=== PATIENT | female | born 1970 | race Caucasian/White ===

== ENCOUNTER → 2019-10-01 | Outpatient (CLI) | payer BC ==
--- NOTE | 2019-10-03 12:45 | CT ---
EXAMINATION TYPE: CT abdomen pelvis w con DATE OF EXAM: 10/01/2019 COMPARISON: 12/01/2014 INDICATION: Nausea, fullness, Rt sided pain shooting down to RLQ DLP: 2185.7 mGycm, Automated exposure control for dose reduction was used. CONTRAST: 100 mL of Isovue 300. Study performed with Oral Contrast TECHNIQUE: Axial images were obtained from above the diaphragm to the pubic rami in the axial plane a t 5 mm thick sections. Reconstructed images are reviewed on the computer in the coronal plane. FINDINGS: Limited CT sections are obtained the lung bases. The lung bases are clear. CT ABDOMEN: Liver: Normal Spleen: Normal Pancreas: Normal Adrenal glands: The adrenal glands are normal. Gallbladder: Surgically absent Kidneys: No masses are evident. No hydronephrosis is present. No cysts are present. Delayed images were obtained through the kidneys, which remain unremarkable. Aorta: Normal Inferior vena cava: Normal. CT PELVIS: Some mild beam hardening artifact through the pelvis is evident. Loops of bowel within the abdomen and pelvis are normal. There are loops of bowel which are incom pletely distended or lack oral contrast limiting their evaluation. Appendix: Normal as visualized. Urinary bladder: Normal. Genitourinary structures: Uterus and adnexal regions appear normal. Osseous structures: No suspicious lytic or sclerotic lesions. Mild sacroiliac joint degenerative garrett ges are present. IMPRESSIONS: 1. No acute abdomen or pelvic abnormality
== END | disposition home or self-care (01) ==
LOC: RADCTMAIN 07:55
PROVIDERS: ATTEND Internal Medicine
DX: R10.31 Right lower quadrant pain (principal); R10.2 Pelvic and perineal pain
CPT/HCPCS: 74177; Q9967 ×2

== ENCOUNTER → 2019-10-14 | Outpatient (CLI) | payer BC ==
[2019-10-14 11:32] LABS: HCT 36.9 % (34.0-46.0); HGB 12.4 gm/dL (11.4-16.0); MCH 28.9 pg (25.0-35.0); MCHC 33.5 g/dL (31.0-37.0); MCV 86.2 fL (80.0-100.0); Mean Platelet Volume 8.9; Platelet Count 208 k/uL (150-450); RBC 4.28 m/uL (3.80-5.40); RDW 13.9 % (11.5-15.5); WBC 6.9 k/uL (3.8-10.6)
[2019-10-14 16:11] LABS: Albumin 4.8 g/dL (3.80-4.90); Albumin/Globulin Ratio 2.29 (1.60-3.17); Anion Gap 8.6 mmol/L (4.00-12.00); BUN/Creat Ratio 23.75 Ratio (12.00-20.00); Calcium 9.6 mg/dL (8.7-10.3); Carbon Dioxide 27.4 mmol/L (21.6-31.8); Globulin 2.1 g/dL (1.6-3.3); Non-African American GFR(CKD) 87.2 (60.0-200.0); Total Bilirubin 0.4 mg/dL (0.2-1.2); Total Protein 6.9 g/dL (6.2-8.2)
== END | disposition home or self-care (01) ==
LOC: LABWHC1 11:05
PROVIDERS: ATTEND Internal Medicine
DX: R10.9 Unspecified abdominal pain (principal); R10.2 Pelvic and perineal pain
CPT/HCPCS: 36415; 80053; 82150; 83690; 85027

== ENCOUNTER → 2020-05-28 | Outpatient (CLI) | payer BC ==
[2020-05-28 15:23] LABS: HCT 39.8 % (34.0-46.0); HGB 12.4 gm/dL (11.4-16.0); MCH 27.3 pg (25.0-35.0); MCHC 31.3 g/dL (31.0-37.0); MCV 87.5 fL (80.0-100.0); Mean Platelet Volume 8.4; Platelet Count 220 k/uL (150-450); RBC 4.55 m/uL (3.80-5.40); RDW 14.5 % (11.5-15.5)
[2020-05-29 01:22] LABS: African American GFR (CKD) 77.2 (60.0-200.0); Albumin 4.9 g/dL (3.80-4.90); Albumin/Globulin Ratio 1.75 (1.60-3.17); Anion Gap 11.8 mmol/L (4.00-12.00); Calcium 9.9 mg/dL (8.7-10.3); Carbon Dioxide 23.2 mmol/L (21.6-31.8); Globulin 2.8 g/dL (1.6-3.3); Non-African American GFR(CKD) 66.6 (60.0-200.0); Potassium 4.7 mmol/L (3.5-5.5); Total Bilirubin 0.5 mg/dL (0.2-1.2); Total Protein 7.7 g/dL (6.2-8.2)
== END | disposition home or self-care (01) ==
LOC: LABWHC1 13:24
PROVIDERS: ATTEND Internal Medicine
DX: R10.9 Unspecified abdominal pain (principal)
CPT/HCPCS: 36415; 80053; 82150; 83690; 85027

== ENCOUNTER → 2020-05-30 | Outpatient (CLI) | payer BC ==
--- NOTE | 2020-05-30 13:31 | CT ---
EXAMINATION TYPE: CT abdomen pelvis w con DATE OF EXAM: 05/30/2020 COMPARISON: Prior CT 10/01/2019 HISTORY: RLQ pain CT DLP: 2373.5 mGycm Automated exposure control for dose reduction was used. TECHNIQUE: Helical acquisition of images from the lung bases through the pelvis have been completed. CONTRAST: Performed with Oral Contrast and with IV Contrast, patient injected with 100 mL of Isovue 300. FINDINGS: Calcification near the mitral annulus is again seen LUNG BASES: Posterior diaphragmatic hernia contains fat on the right extends into the posterior right lung base as on prior. AORTA: No significant abnormality is appreciated. LIVER/GB: The liver is enlarged and shows low-attenuation likely due to hepatic steatosis, patient is post cholecystectomy PANCREAS: No significant abnormality is seen. SPLEEN: No significant abnormality is seen. ADRENALS: No significant abnormality is seen. KIDNEYS: No significant abnormality is seen. REPRODUCTIVE ORGANS: Fat density mass associated with the left ovary measures 5.7 cm in greatest ferraro sverse dimension, some minimal internal soft tissue density. BOWEL: No significant abnormality is seen. The appendix fills with contrast and is normal FREE AIR: No Free Air visible. ASCITES: None visible. PELVIC ADENOPATHY: None visualized. RETROPERITONEAL ADENOPATHY: No Retroperitoneal Adenopathy visible. URINARY BLADDER: No significant abnormality is seen. OSSEOUS STRUCTURES: Degenerative disc disease and spinal curvature noted in the lumbar spine. IMPRESSION: DERMOID TUMOR LEFT OVARY. HEPATIC STEATOSIS, HEPATOMEGALY, POSTOP CHANGES.
== END | disposition home or self-care (01) ==
LOC: RADCTMAIN 10:57
PROVIDERS: ATTEND Internal Medicine
DX: D27.1 Benign neoplasm of left ovary (principal); K76.0 Fatty (change of) liver, not elsewhere classified; R16.0 Hepatomegaly, not elsewhere classified; Z98.890 Other specified postprocedural states
CPT/HCPCS: 74177; Q9967

== ENCOUNTER 2022-03-07 09:00 | Day surgery (SDC) | payer BC ==
[2022-03-05 11:00] VITALS: BMI 56.0
[~2022-03-07 09:00] MED LIST: DEXAMETHASONE SOD PHOSPHATE 4 MG/ML 1 ML VIAL IV ONE; HYDROmorphone 0.5 MG/0.5 ML SYRINGE IVP PRN; LACTATED RINGERS 1,000 ML IV SCH; MIDAZOLAM 2 MG/2 ML VIAL IV PRN; ONDANSETRON 4 MG/2 ML VIAL IVP ONE; SCOPOLAMINE 1 MG/72 HR PATCH TRANSDERM ONE; ceFAZolin 3 GM in SODIUM CHLORIDE 0.9% 100 ML IVPB PRN
[2022-03-07] MEDS ORDERED: fentaNYL (PF) 50 MCG/ML 2 ML AMP ONE (11:28)
[2022-03-07] MEDS ORDERED: MIDAZOLAM 2 MG/2 ML VIAL ONE (11:28)
[2022-03-07] MEDS ORDERED: SUCCINYLCHOLINE CHLORIDE VIAL 200 MG/10 ML VIAL IV ONE (11:28)
[2022-03-07] MEDS ORDERED: LIDOCAINE 2% INJ 20 MG/ML (2 ML VIAL) ONE (11:28)
[2022-03-07] MEDS ORDERED: ROCURONIUM 10 MG/ML (5 ML VIAL) IV ONE (11:28)
[2022-03-07] MEDS ORDERED: PHENYLEPHRINE-0.9% NACL SYG 1,000 MCG/10 ML SYRINGE ONE (11:28)
[2022-03-07] MEDS ORDERED: PROPOFOL 10 MG/ML 20 ML VIAL IV ONE (11:28)
[2022-03-07] MEDS ORDERED: ceFAZolin 1,000 MG in SODIUM CHLORIDE 0.9% 1,000 ML IRRIGATION ONE (11:32)
[2022-03-07] MEDS ORDERED: BUPIVACAINE (PF) 0.5% 30 ML VIAL SQ ONE (11:45)
[2022-03-07] MEDS ORDERED: LACTATED RINGERS 1,000 ML IV ONE (12:33)
--- NOTE | 2022-03-07 12:43 | P.OP ---
Date of Procedure: 03/07/22 Preoperative Diagnosis: Hallux rigidus right foot Postoperative Diagnosis: Same Procedure(s) Performed: First metatarsal phalangeal joint arthrodesis right foot Implants: Arthrex MaxForce MTP fusion plate with associated screws Anesthesia: SAM Surgeon: Garland Garza Estimated Blood Loss (ml): 2 Pathology: none sent Condition: stable Disposition: PACU Description of Procedure: The patient was brought into the operative room placed on table supine position. Timeout was taken to confirm correct patient identifiers, correct procedure, and correct laterality of procedure. When the staff in the room were in agreement with the timeout, the patient was induced and placed under general anesthesia. A well-padded tourniquet was placed on the ankle and then 20 mL of 0.25% Marcaine was injected as an ankle block. The foot was then prepped and draped in usual manner. The foot was exsanguinated with an Esmarch bandage and the tourniquet inflated to 250 mmHg. Attention directed over the first metatarsal phalangeal joint where a linear incision was made between the extensor hallucis longus tendon and the neurovascular structures. The incision was deepened down to the subcutaneous tissue careful to identify, avoid, and retract any neurovascular structures and cauterize any bleeding vessels. Blunt dissection was continued down to the joint capsule. A linear periosteal and capsular incision was made to the extensor hallucis longus tendon. Subperiosteal dissection was performed to expose the base of the proximal phalanx and head of the first metatarsal. A reamer saw was then used to contour the first metatarsal head and remove any of the osteophytes. Then a guidewire was placed centrally into the first metatarsal head and into the medullary canal parallel to the long access of the metatarsal. The concave reamer was then used to remove the articular cartilage and subchondral bone and expose bleeding medullary bone. The guidewire was removed and then used to aggressively fenestrate the head of the first metatarsal to promote bleeding. The guidewire was then inserted at the central aspect of the articular surface of the base of the proximal phalanx. It was advanced into the medullary canal parallel to the long axis of the phalanx. The convex reamer was then used to remove the articular cartilage and subchondral bone and expose bleeding medullary bone. The guidewire was removed and used to aggressively fenestrate this surface also. The wound is then thoroughly irrigated with antibiotic saline. Approximately 1 mL of Arthrex bone morphogenic protein material was placed between the arthrodesis segments. Then the MaxForce plate was placed dorsally across the arthrodesis site utilizing aligned in the plate to placed over the joint surface. It was temporarily fixated in position was checked under fluoroscopy. Once position was acceptable locking screws were placed in the distal holes in the proximal phalanx. A guidewire was then placed across the arthrodesis site to hold the joint in its position. Then the drill hole for the compression device of the plate was made the compression device inserted and then utilized to further compress the arthrodesis site. Once that was completed threaded olive wire was used to lock the plate in place and then the second compression screw was placed proximally to lock the plate and further compress the joint. A second nonlocking screw was placed in the proximal portion of the plate into the metatarsal and the last screw placed with locking screw in the most proximal portion of the plate on the metatarsal. Final fluoroscopic imaging showed complete compression across the arthrodesis site and proper alignment of the great toe. The wound is again irrigated with antibiotic saline. Deep closure was done with 2-0 Vicryl. Subcu closure done for Monocryl. And skin closure done with 3-0 Stratafix in a running subcuticular manner. Dermal glue was applied and allowed to dry. Steri-Strips are placed over the incision, then a jumpstart dressing, and then a bulky dry dressing. The tourniquet was released and capillary refill return to all digits on the foot. Patient was then placed in a well-padded, well molded plaster posterior mold/sugar tong splint. The ankle and foot were held in neutral position until the splint was dried. Anesthesia was then reversed and the patient was taken recovery with vital signs stable
[2022-03-07 12:56] VITALS: TEMP 97
[2022-03-07 14:02] VITALS: RESP 20
[2022-03-07 14:07] VITALS: BP 116/67; PULSE 65
== END 2022-03-07 14:27 | disposition home or self-care (01) ==
LOC: OR 09:00
PROVIDERS: ATTEND Podiatrist
DX: M20.21 Hallux rigidus, right foot (principal)
CPT/HCPCS: 28750; C1713; J2250; J0330; J1100; J0690 ×2; J2405; J3010; J2370; J2704; J2001

== ENCOUNTER 2022-07-07 17:22 | Inpatient (IN) | payer BC ==
[2022-07-07 21:31] LABS: Basophils % (A) 0 %; Eosinophils # (A) 0.1 k/uL (0-0.7); Eosinophils % (A) 1 %; HCT 37.5 % (34.0-46.0); HGB 12.2 gm/dL (11.4-16.0); Lymphocytes # (A) 2.5 k/uL (1.0-4.8); Lymphocytes % (A) 17 %; MCH 29.1 pg (25.0-35.0); MCHC 32.6 g/dL (31.0-37.0); MCV 89.2 fL (80.0-100.0); Monocytes # (A) 0.7 k/uL (0-1.0); Monocytes % (A) 5 %; Neutrophils # (A) 11.3 k/uL (1.3-7.7); Neutrophils % (A) 76 %; Platelet Count 189 k/uL (150-450); RBC 4.21 m/uL (3.80-5.40); RDW 14.2 % (11.5-15.5); WBC 14.9 k/uL (3.8-10.6)
[2022-07-07 21:42] LABS: Albumin 3.9 g/dL (3.5-5.0); Chloride 98 mmol/L (98-107); Glucose 91 mg/dL (74-99); Potassium 4.4 mmol/L (3.5-5.1); Sodium 136 mmol/L (137-145); Total Protein 6.5 g/dL (6.3-8.2)
[2022-07-07 21:44] LABS: ALT 48 U/L (4-34); AST 27 U/L (14-36); African American GFR (CKD) >90 (>60 ml/min/1.73 sqM); Alkaline Phosphatase 55 U/L (38-126); Anion Gap 10 mmol/L; Blood Urea Nitrogen 26 mg/dL (7-17); Calcium 9.3 mg/dL (8.4-10.2); Carbon Dioxide 28 mmol/L (22-30); Non-African American GFR(CKD) >90 (>60 ml/min/1.73 sqM); Total Bilirubin 0.4 mg/dL (0.2-1.3)
[2022-07-07 22:04] LABS: INR 0.9 (<1.2); Prothrombin Time 10.1 sec (9.0-12.0)
--- NOTE | 2022-07-07 22:07 | XR ---
EXAMINATION TYPE: XR chest 2V DATE OF EXAM: 07/07/2022 9:31 PM COMPARISON: None TECHNIQUE: XR chest 2V Frontal and lateral views of the chest. CLINICAL INDICATION:Female, 52 years old with history of difficulty breathing; FINDINGS: Lungs/Pleura: There is no evidence of pleural effusion, focal consolidation, or pneumothorax. Pulmonary vascularity: Pulmonary vascular congestion. Heart/mediastinum: Cardiomediastinal silhouette is enlarged and stable. Musculoskeletal: No acute osseous pathology. IMPRESSION: Cardiomegaly and mild pulmonary vascular congestion. Correlate with BNP for congestive heart failure.
[2022-07-07 22:22] LABS: Partial Thromboplastin Time 21.2 sec (22.0-30.0)
--- NOTE | 2022-07-07 23:01 | CT ---
EXAMINATION TYPE: CT angio chest DATE OF EXAM: 07/07/2022 COMPARISON: None HISTORY: chest pain, mid to right side, elevated d dimer CT DLP: 1016.6 mGycm Automated exposure control for dose reduction was used. CONTRAST: Performed with IV Contrast, patient injected with 100 mL of Isovue 370. Images obtained from the thoracic inlet through the diaphragm with the IV contrast. There are 3-D post processed images. There is no mediastinal adenopathy. There are no hilar masses. Thoracic aorta is intact. No aneurysm. Heart size is normal. No pericardial effusion. There is normal contrast opacification of the pulmonary arteries. No filling defect. There is posteri or right sided diaphragmatic hernia containing fat. There is mild subsegmental atelectasis right lung base. The lungs are clear of consolidation. No evidence of a pulmonary mass. The thoracic spine is intact. No compression fracture. Sternum is intact. IMPRESSION: No evidence of pulmonary embolism. Moderate fat containing posterior right-sided diaphragmatic hernia . No suspicious pulmonary mass.
[2022-07-07] MEDS ORDERED: HYDROcodone/APAP 5-325MG 1 EACH TAB PO PRN (23:33)
[2022-07-07] MEDS ORDERED: NALOXONE 0.4 MG/ML 1 ML VIAL IV PRN (23:33)
[2022-07-07] MEDS ORDERED: CALCIUM CARBONATE 500 MG CHEWABLE PO PRN (23:33)
[2022-07-07] MEDS ORDERED: TEMAZEPAM 7.5 MG CAP PO PRN (23:33)
[2022-07-07] MEDS ORDERED: FUROSEMIDE 10 MG/ML 4 ML VIAL IV STA (23:33)
[2022-07-07] MEDS ORDERED: ALPRAZolam 0.25 MG TAB PO PRN (23:33)
[2022-07-07] MEDS ORDERED: ONDANSETRON 4 MG/2 ML VIAL IVP PRN (23:33)
[2022-07-07] MEDS ORDERED: DOCUSATE 100 MG CAP PO PRN (23:33)
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
[2022-07-07] MEDS ORDERED: amLODIPine 10 MG TAB PO STA (23:36)
--- NOTE | 2022-07-08 09:09 | P.HPIM ---
History of Present Illness This is a pleasant 52 years old female with past medical history of Hypertension, Osteoarthritis . PCP is Dr. Barrett Patient presents with dyspnea with exertion or overt about 4 days associated with leg swelling. Patient also has been having some mild chest pain and back pain. She states her pain is 5/10, on the front of the chest, central, nonradiating, about 5/10 in severity and felt like tightness as per patient Patient went to urgent care and they checked her oxygen was 92% on room air No coughing, no abdominal pain or vomiting or diarrhea, no headache or dizziness, no weakness or numbness, no urinary problem or urgency. She denies smoking, alcohol or illicit drugs Vitas looks stable, patient is slightly bradycardic around 56-58. Labs showing mild leukocytosis 14.9, d-dimer slightly elevated at 0.73. BMP and liver enzymes are unremarkable. Troponin 3 are negative less than 0.012. ProBNP is 983. CT of the chest, for chest pain and elevated d-dimer showing negative for pulmonary embolism moderate right-sided diaphragmatic hernia and no suspicious lung mass or infiltrate Chest x-ray: Mild pulmonary congestion in emergency room patient received Lasix 1 Review of Systems Review of systems CONSTITUTIONAL: No fever, no malaise, no fatigue. HEENT: No recent visual problems or hearing problems. Denied any sore throat. CARDIOVASCULAR: No orthopnea, PND, no palpitations, no syncope. PULMONARY: no cough, no hemoptysis. GASTROINTESTINAL: No diarrhea, no nausea, no vomiting, no abdominal pain. Normoactive bowel sounds. NEUROLOGICAL: No headaches, no weakness, no numbness. HEMATOLOGICAL: Denies any bleeding or petechiae. GENITOURINARY: Denies any burning micturition, frequency, or urgency. MUSCULOSKELETAL/RHEUMATOLOGICAL: Denies any joint pain, swelling, or any muscle pain. ENDOCRINE: Denies any polyuria or polydipsia. Past Medical History Past Medical History: Hypertension, Osteoarthritis (OA) Additional Past Medical History / Comment(s): skin cancer on face, Obese History of Any Multi-Drug Resistant Organisms: None Reported Past Surgical History: Section, Cholecystectomy, Hysterectomy, Orthopedic Surgery, Tonsillectomy, Tubal Ligation Additional Past Surgical History / Comment(s): RT KNEE ARTHROSCOPY X3, Moh's procedure Past Anesthesia/Blood Transfusion Reactions: No Reported Reaction Past Psychological History: Anxiety Smoking Status: Never smoker Past Alcohol Use History: None Reported Past Drug Use History: None Reported - Past Family History Mother Family Medical History: Cancer Additional Family Medical History / Comment(s): COLON Medications and Allergies Home Medications Medication Instructions Recorded Confirmed Type FLUoxetine HCL [PROzac] 40 mg PO DAILY 03/05/22 07/08/22 History atenoloL [Tenormin] 25 mg PO BID 03/05/22 07/08/22 History Albuterol Nebulized [Ventolin 2.5 mg INHALATION RT-QID PRN 07/08/22 07/08/22 History Nebulized] Promethazine 6.25MG/5Ml [Phenergan 6.25 mg PO HS PRN 07/08/22 07/08/22 History Syrup] Allergies Allergy/AdvReac Type Severity Reaction Status Date / Time No Known Allergies Allergy Verified 07/07/22 17:38 Physical Exam Vitals: Vital Signs Temp Pulse Resp BP Pulse Ox 07/08/22 05:36 56 L 18 98 07/08/22 01:08 58 L 112/53 98 07/07/22 23:48 58 L 18 129/65 98 07/07/22 21:18 58 L 18 99 07/07/22 17:35 98.2 F 68 24 167/77 95 Intake and Output 07/07/22 07/08/22 07/08/22 22:59 06:59 14:59 Other: Weight 142.882 kg -GENERAL: The patient is alert and oriented x3, not in any acute distress. morbidly obese HEENT: Pupils are round and equally reacting to light. EOMI. No scleral icterus. No conjunctival pallor. Normocephalic, atraumatic. No pharyngeal erythema. No th yromegaly. CARDIOVASCULAR: S1 and S2 present. No murmurs, rubs, or gallops. PULMONARY: Chest is clear to auscultation, no wheezing or crackles. ABDOMEN: Soft, nontender, nondistended, normoactive bowel sounds. No palpable organomegaly. MUSCULOSKELETAL: No joint swelling or deformity. EXTREMITIES: No cyanosis, clubbing, or pedal edema. NEUROLOGICAL: Gross neurological examination did not reveal any focal deficits. SKIN: No rashes. no petechiae. Results CBC & Chem 7: 07/07/22 21:18 07/07/22 21:18 Labs: Abnormal Lab Results - Last 24 Hours (Table) 07/07/22 07/07/22 07/07/22 Range/Units 21:18 21:18 21:18 WBC 14.9 H (3.8-10.6) k/uL Neutrophils # 11.3 H (1.3-7.7) k/uL APTT 21.2 L (22.0-30.0) sec D-Dimer 0.73 H (<0.60) mg/L FEU Sodium 136 L (137-145) mmol/L BUN 26 H (7-17) mg/dL ALT 48 H (4-34) U/L Assessment and Plan Assessment: new-onset acute CHF, unknown ejection fraction moderate-sized right-sided diaphragmatic hernia hypertension History of depression History of osteoarthitis Obesity with BMI of 57.6 Plan: This is a pleasant result female who presents with CHF Continue with IV Lasix and monitor input and output Cardiology consult Check echocardiogramritis Labs and medication were reviewed.. Continue same treatment. Continue with symptomatic treatment. Resume home medication. Monitor lytes and vitals. DVT and GI prophylaxis. Further recommendations as per clinical course of the patient DVT prophylaxis: Subcutaneous heparin GI Prophylaxis: Pepcid PT/OT: Pending Prognosis is guarded
[2022-07-08] MEDS: FAMOTIDINE 20 MG/2 ML VIAL IV SCH ×2 (09:33→20:10)
[2022-07-08] MEDS: atenoloL 25 MG TAB PO SCH ×2 (09:33→20:10)
[2022-07-08] MEDS: FLUoxetine HCL 20 MG CAP PO SCH (09:33)
[2022-07-08] MEDS: HEPARIN SODIUM,PORCINE/PF 5,000 UNIT/0.5 ML SYRINGE SQ SCH ×2 (09:34→20:10)
[2022-07-08] MEDS: OXYBUTYNIN 15 MG TAB.ER.24 PO SCH (09:36)
--- NOTE | 2022-07-08 11:48 | P.CRDCN ---
History of Present Illness History of present illness: HISTORY OF PRESENT ILLNESS: This is a 52-year-old female with a past medical history significant for hypertension and morbid obesity. 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 We have been asked to see the patient in consultation for congestive heart failure. Patient examined at the bedside. Patient states that she was diagnosed with Covid a few weeks ago. She states that she was vaccinated for Covid and had a mild case. She reports over the past week that she has been having some shortness of breath, intermittent chest pains, and lower extremity edema. The patient presented to urgent care for further evaluation was directed to come to the emergency room. She received a 1 time dose of IV Lasix in the emergency room. She reports a lot of urine output following her lasix dose. She reports improvement in her lower extremity edema and SOB this morning. Denies chest pain or pressure. Vital signs are stable. * Bedside telemetry reveals sinus mechanism. No EKG available at the time of evaluation. * Chest xray cardiomegaly and mild pulmonary vascular congestion. * Chest CT: Negative for pulmonary embolism * Laboratory data: WBC 14.9. Hemoglobin 12.2. Platelet count 189. D-dimer 0.73. Troponin negative 3. ProBNP 938. * Current home cardiac medications include atenolol 25 mg twice a day REVIEW OF SYSTEMS: At the time of my exam: CONSTITUTIONAL: Denies fever or chills. HEENT: Denies blurred vision, vision changes, or eye pain. Denies hemoptysis CARDIOVASCULAR: Denies chest pain. Denies orthopnea. Denies PND. Denies palpitations RESPIRATORY: Denies shortness of breath. GASTROINTESTINAL: Denies abdominal pain. Denies nausea or vomiting. HEMATOLOGIC: Denies bleeding disorders. GENITOURINARY: Denies any blood in urine. SKIN: Denies pruitis. Denies rash. PHYSICAL EXAM: VITAL SIGNS: Reviewed. GENERAL: Well-developed in no acute distress. HEENT: Head is normocephalic. Pupils are equal, round. Sclerae anicteric. Mucous membranes of the mouth are moist. Neck supple. No JVD or thyromegaly LUNGS: Respirations even and unlabored. Lungs diminished to auscultation bilaterally. HEART: Regular rate and rhythm. S1 and S2 heard. ABDOMEN: Soft. Nondistended. Nontender. EXTREMITIES: Normal range of motion. No clubbing or cyanosis. Peripheral pulses intact. Minimal lower extremity edema NEUROLOGIC: Awake and alert. Oriented x 3. ASSESSMENT: Shortness of breath Acute heart failure, type unknown, echo pending Recent Covid infection Hypertension Morbid obesity PLAN: Obtain 2-D echo to assess cardiac structure and function Continue IV Lasix 40 mg every 12 hours Daily weights and accurate I&O Monitor kidney function Resume home cardiac medications Further recommendations pending patient course Nurse practitioner note has been reviewed by physician. Signing provider agrees with the documented findings, assessment, and plan of care. Past Medical History Past Medical History: Hypertension, Osteoarthritis (OA) Additional Past Medical History / Comment(s): skin cancer on face, Obese History of Any Multi-Drug Resistant Organisms: None Reported Past Surgical History: Section, Cholecystectomy, Hysterectomy, Orthopedic Surgery, Tonsillectomy, Tubal Ligation Additional Past Surgical History / Comment(s): RT KNEE ARTHROSCOPY X3, Moh's procedure Past Anesthesia/Blood Transfusion Reactions: No Reported Reaction Past Psychological History: Anxiety Smoking Status: Never smoker Past Alcohol Use History: None Reported Past Drug Use History: None Reported - Past Family History Mother Family Medical History: Cancer Additional Family Medical History / Comment(s): COLON Medications and Allergies Home Medications Medication Instructions Recorded Confirmed Type FLUoxetine HCL [PROzac] 40 mg PO DAILY 03/05/22 07/08/22 History atenoloL [Tenormin] 25 mg PO BID 03/05/22 07/08/22 History Albuterol Nebulized [Ventolin 2.5 mg INHALATION RT-QID PRN 07/08/22 07/08/22 History Nebulized] Promethazine 6.25MG/5Ml [Phenergan 6.25 mg PO HS PRN 07/08/22 07/08/22 History Syrup] Allergies Allergy/AdvReac Type Severity Reaction Status Date / Time No Known Allergies Allergy Verified 07/07/22 17:38 Physical Exam Vitals: Vital Signs Temp Pulse Resp BP Pulse Ox 07/08/22 05:36 56 L 18 98 07/08/22 01:08 58 L 112/53 98 07/07/22 23:48 58 L 18 129/65 98 07/07/22 21:18 58 L 18 99 07/07/22 17:35 98.2 F 68 24 167/77 95 Intake and Output 07/07/22 07/08/22 07/08/22 22:59 06:59 14:59 Other: Weight 142.882 kg Results 07/07/22 21:18 07/07/22 21:18 Cardiac Enzymes 07/07/22 07/07/22 07/08/22 Range/Units 21:18 21:18 01:18 AST 27 (14-36) U/L Troponin I <0.012 <0.012 (0.000-0.034) ng/mL 07/08/22 Range/Units 05:19 AST (14-36) U/L Troponin I <0.012 (0.000-0.034) ng/mL Coagulation 07/07/22 Range/Units 21:18 PT 10.1 (9.0-12.0) sec APTT 21.2 L (22.0-30.0) sec CBC 07/07/22 Range/Units 21:18 WBC 14.9 H (3.8-10.6) k/uL RBC 4.21 (3.80-5.40) m/uL Hgb 12.2 (11.4-16.0) gm/dL Hct 37.5 (34.0-46.0) % Plt Count 189 (150-450) k/uL Comprehensive Metabolic Panel 07/07/22 Range/Units 21:18 Sodium 136 L (137-145) mmol/L Potassium 4.4 (3.5-5.1) mmol/L Chloride 98 (98-107) mmol/L Carbon Dioxide 28 (22-30) mmol/L BUN 26 H (7-17) mg/dL Creatinine 0.76 (0.52-1.04) mg/dL Glucose 91 (74-99) mg/dL Calcium 9.3 (8.4-10.2) mg/dL AST 27 (14-36) U/L ALT 48 H (4-34) U/L Alkaline Phosphatase 55 (38-126) U/L Total Protein 6.5 (6.3-8.2) g/dL Albumin 3.9 (3.5-5.0) g/dL Current Medications Generic Name Dose Route Start Last Admin Trade Name Freq PRN Reason Stop Dose Admin Hydrocodone Bitart/Acetaminophen 1 each 07/07/22 23:33 Hydrocodone/Apap 5-325mg 1 Each Tab PO Q4HR PRN Moderate Pain (Scale 4 to 6) Alprazolam 0.25 mg 07/07/22 23:33 Alprazolam 0.25 Mg Tab PO Q6HR PRN Anxiety Atenolol 25 mg 07/08/22 09:00 Atenolol 25 Mg Tab PO BID [facility] Calcium Carbonate/Glycine 1,000 mg 07/07/22 23:33 Calcium Carbonate 500 Mg Chewable PO Q4HR PRN Dyspepsia Docusate Sodium 100 mg 07/07/22 23:33 Docusate 100 Mg Cap PO BID PRN Constipation Famotidine 20 mg 07/08/22 09:00 Famotidine 20 Mg/2 Ml Vial IV Q12HR [facility] Fluoxetine HCl 40 mg 07/08/22 09:00 Fluoxetine Hcl 20 Mg Cap PO DAILY [facility] Furosemide 40 mg 07/08/22 21:00 Furosemide 10 Mg/Ml 4 Ml Vial IV Q12HR [facility] Heparin Sodium (Porcine) 5,000 unit 07/08/22 09:00 Heparin Sodium,Porcine/Pf 5,000 Unit/0.5 Ml Syringe SQ Q12HR [facility] Naloxone HCl 0.2 mg 07/07/22 23:33 Naloxone 0.4 Mg/Ml 1 Ml Vial IV Q2M PRN Opioid Reversal Ondansetron HCl 4 mg 07/07/22 23:33 Ondansetron 4 Mg/2 Ml Vial IVP Q8HR PRN Nausea And Vomiting Oxybutynin Chloride 15 mg 07/08/22 09:00 Oxybutynin 15 Mg Tab.Er.24 PO DAILY [facility] Temazepam 15 mg 07/07/22 23:33 Temazepam 7.5 Mg Cap PO HS PRN Insomnia Intake and Output 07/07/22 07/08/22 07/08/22 22:59 06:59 14:59 Other: Weight 142.882 kg 07/07/22 21:18 07/07/22 21:18
[2022-07-08 15:53] LABS: Chol/HDL Ratio 2.37 Ratio; LDL Cholesterol,Calculated 63.7 mg/dL (0.0-131.0)
--- NOTE | 2022-07-08 17:45 | CA ---
Transthoracic Echo Report Name: Kelly Jensen Age: 52 Gender: F : 1970 Exam Date: 07/08/2022 10:39 Exam Location: [facility] Ht (in): 62 Wt (lb): 315 Ordering Physician: Willard Farris MD Attending/Referring Phys: [id number], Brenton Printer Helper Amparo Keller, MAITE Procedure CPT: Indications: Rule out heart disease Cardiac Hx: Technical Quality: Technically difficult study Contrast 1: Lumason Total Dose (mL): 4 Contrast 2: Total Dose (mL): MEASUREMENTS (Male / Female) Normal Values 2D ECHO LV Diastolic Diameter PLAX 3.9 cm 4.2 - 5.9 / 3.9 - 5.3 cm LV Systolic Diameter PLAX 2.6 cm IVS Diastolic Thickness 1.7 cm 0.6 - 1.0 / 0.6 - 0.9 cm LVPW Diastolic Thickness 1.8 cm 0.6 - 1.0 / 0.6 - 0.9 cm LV Relative Wall Thickness 0.9 RV Internal Dim ED PLAX 2.0 cm LA Volume 47.1 cm??? 18 - 58 / 22 - 52 cm??? M-MODE Aortic Root Diameter MM 2.6 cm LA Systolic Diameter MM 3.7 cm LA Ao Ratio MM 1.4 DOPPLER AV Peak Velocity 86.7 cm/s AV Peak Gradient 3.0 mmHg LVOT Peak Velocity 91.2 cm/s LVOT Peak Gradient 3.3 mmHg MV Area PHT 2.7 cm??? Mitral E Point Velocity 78.2 cm/s Mitral A Point Velocity 62.3 cm/s Mitral E to A Ratio 1.3 MV Deceleration Time 285.0 ms TR Peak Velocity 186.2 cm/s TR Peak Gradient 13.9 mmHg Right Ventricular Systolic Press 18.9 mmHg FINDINGS Left Ventricle Moderately increased left ventricular wall thickness. Normal left ventricular systolic function with no obvious regional wall motion abnormalities. Left ventricular ejection fraction is estimated at 55 %. Right Ventricle Normal right ventricular size and function. Right Atrium Normal right atrial size. Left Atrium Normal left atrial size. No evidence for an atrial septal defect. Mitral Valve Structurally normal mitral valve. Mild mitral regurgitation. Aortic Valve No aortic valve stenosis or regurgitation. Tricuspid Valve Structurally normal tricuspid valve. Mild tricuspid regurgitation. Pulmonic Valve Pulmonic valve not well visualized. Pericardium No pericardial effusion. Aorta Aortic root and proximal ascending aorta not well visualized. CONCLUSIONS Concentric left ventricular hypertrophy with normal LV function mild mitral regurgitation Previewed by: Dr. Miller Pratt MD (Electronically Signed) Final Date: 08 July 2022 17:44
[2022-07-08] MEDS ORDERED: ACETAMINOPHEN TAB 325 MG TAB PO PRN (20:08)
[2022-07-08] MEDS: FUROSEMIDE 10 MG/ML 4 ML VIAL IV SCH (20:10)
--- NOTE | 2022-07-08 23:02 | US ---
EXAMINATION TYPE: US venous doppler duplex LE DATE OF EXAM: 07/08/2022 10:27 PM COMPARISON: NONE CLINICAL HISTORY: high ddimer. high ddimer SIDE PERFORMED: Bilateral TECHNIQUE: The lower extremity deep venous system is examined utilizing real time linear array sonog codey with graded compression, doppler sonography and color-flow sonography. VESSELS IMAGED: Common Femoral Vein Deep Femoral Vein Greater Saphenous Vein * Femoral Vein Popliteal Vein Small Saphenous Vein * Proximal Calf Veins (* superficial vessels) Right Leg: No evidence of DVT seen. Distal fem limited due to body habitus. Prox calf veins not visu alized. Left Leg: No evidence of DVT seen. Distal fem limited due to body habitus. Prox calf veins not visua lized. IMPRESSION: No evidence of deep vein thrombosis in both legs.
[2022-07-08 23:19] VITALS: RESP 18
[2022-07-09] MEDS: OXYBUTYNIN 15 MG TAB.ER.24 PO SCH (07:52)
[2022-07-09] MEDS: atenoloL 25 MG TAB PO SCH ×2 (07:53→20:30)
[2022-07-09] MEDS: FAMOTIDINE 20 MG/2 ML VIAL IV SCH (07:53)
[2022-07-09] MEDS: HEPARIN SODIUM,PORCINE/PF 5,000 UNIT/0.5 ML SYRINGE SQ SCH ×2 (07:53→20:30)
[2022-07-09] MEDS: FLUoxetine HCL 20 MG CAP PO SCH (07:53)
[2022-07-09] MEDS: FUROSEMIDE 10 MG/ML 4 ML VIAL IV SCH (07:53)
[2022-07-09] MEDS: FUROSEMIDE 20 MG TAB PO SCH (08:45)
--- NOTE | 2022-07-09 08:45 | XR ---
EXAMINATION TYPE: XR chest 2V DATE OF EXAM: 07/09/2022 COMPARISON: Chest x-ray and chest CT 07/07/2022 HISTORY: Congestive heart failure, follow-up TECHNIQUE: Frontal and lateral views of the chest are obtained. FINDINGS: There is no focal air space opacity, pleural effusion, or pneumothorax seen. The cardiac silhouette size is within normal limits. The osseous structures are intact. There are overlying car diac leads. Right posterior costophrenic angle shows soft tissue mass as seen on CT and consistent wi th posterior diaphragmatic hernia with fat present. IMPRESSION: No acute cardiopulmonary process.
[2022-07-09 09:07] LABS: Prothrombin Time 10.9 sec (9.0-12.0)
[2022-07-09 09:08] LABS: Basophils % (A) 0 %; Eosinophils # (A) 0.2 k/uL (0-0.7); Eosinophils % (A) 2 %; HCT 43.6 % (34.0-46.0); HGB 14.5 gm/dL (11.4-16.0); Lymphocytes # (A) 2.7 k/uL (1.0-4.8); Lymphocytes % (A) 23 %; MCHC 33.2 g/dL (31.0-37.0); MCV 90.5 fL (80.0-100.0); Mean Platelet Volume 7.9; Monocytes # (A) 0.7 k/uL (0-1.0); Monocytes % (A) 6 %; Neutrophils # (A) 7.8 k/uL (1.3-7.7); Neutrophils % (A) 67 %; Platelet Count 258 k/uL (150-450); RBC 4.82 m/uL (3.80-5.40); RDW 14.6 % (11.5-15.5); WBC 11.6 k/uL (3.8-10.6)
[2022-07-09 09:22] LABS: African American GFR (CKD) 81 (>60 ml/min/1.73 sqM); Anion Gap 15 mmol/L; Blood Urea Nitrogen 22 mg/dL (7-17); Calcium 9.1 mg/dL (8.4-10.2); Carbon Dioxide 26 mmol/L (22-30); Chloride 94 mmol/L (98-107); Glucose 202 mg/dL (74-99); Non-African American GFR(CKD) 71 (>60 ml/min/1.73 sqM); Potassium 4.3 mmol/L (3.5-5.1); Sodium 135 mmol/L (137-145)
--- NOTE | 2022-07-09 09:34 | P.PN ---
Subjective Progress Note Date: 07/09/22 HISTORY OF PRESENT ILLNESS: This is a 52-year-old female with a past medical history significant for hypertension and morbid obesity. 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 We have been asked to see the patient in consultation for congestive heart failure. Patient examined at the bedside. Patient states that she was diagnosed with Covid a few weeks ago. She states that she was vaccinated for Covid and had a mild case. She reports over the past week that she has been having some shortness of breath, intermittent chest pains, and lower extremity edema. The patient presented to urgent care for further evaluation was directed to come to the emergency room. She received a 1 time dose of IV Lasix in the emergency room. She reports a lot of urine output following her lasix dose. She reports improvement in her lower extremity edema and SOB this morning. Denies chest pain or pressure. Vital signs are stable. * Bedside telemetry reveals sinus mechanism. No EKG available at the time of evaluation. * Chest xray cardiomegaly and mild pulmonary vascular congestion. * Chest CT: Negative for pulmonary embolism * Laboratory data: WBC 14.9. Hemoglobin 12.2. Platelet count 189. D-dimer 0.73. Troponin negative 3. ProBNP 938. * Current home cardiac medications include atenolol 25 mg twice a day 07/09/2022 Patient examined this morning at the bedside. Patient denies chest pain or pressure. She denies shortness of breath. She remains on IV Lasix. Patient's lower extremity edema has resolved. Echocardiogram completed revealing ejection fraction 55%. Vital signs are stable. PHYSICAL EXAM: VITAL SIGNS: Reviewed. GENERAL: Well-developed in no acute distress. HEENT: Head is normocephalic. Pupils are equal, round. Sclerae anicteric. Mucous membranes of the mouth are moist. Neck supple. No JVD or thyromegaly LUNGS: Respirations even and unlabored. Lungs diminished to auscultation bilaterally. HEART: Regular rate and rhythm. S1 and S2 heard. ABDOMEN: Soft. Nondistended. Nontender. EXTREMITIES: Normal range of motion. No clubbing or cyanosis. Peripheral pulses intact. Minimal lower extremity edema NEUROLOGIC: Awake and alert. Oriented x 3. ASSESSMENT: Shortness of breath Acute heart failure, type unknown, echo pending Recent Covid infection Hypertension Morbid obesity PLAN: Discontinue IV Lasix Begin oral Lasix 20 mg daily Patient is currently stable for discharge home today from a cardiac standpoint Patient is to follow up in [address] Loredo Nurse practitioner note has been reviewed by physician. Signing provider agrees with the documented findings, assessment, and plan of care. Objective - Vital Signs Vital signs: Vital Signs Temp 97.8 F 07/09/22 07:51 Pulse 65 07/09/22 07:51 Resp 18 07/09/22 07:51 BP 123/65 07/09/22 07:51 Pulse Ox 94 L 07/09/22 07:51 FiO2 Intake & Output 07/08/22 07/09/22 07/09/22 18:59 06:59 18:59 Intake Total 180 Output Total 700 Balance -700 180 Weight 142.542 kg 140.5 kg Intake: Oral 180 Output: Urine 700 - Labs CBC & Chem 7: 07/09/22 08:37 07/09/22 08:37 Labs: Abnormal Lab Results - Last 24 Hours (Table) 07/07/22 07/09/22 07/09/22 Range/Units 21:18 08:37 08:37 WBC 11.6 H (3.8-10.6) k/uL Neutrophils # 7.8 H (1.3-7.7) k/uL Sodium 135 L (137-145) mmol/L Chloride 94 L (98-107) mmol/L BUN 22 H (7-17) mg/dL Glucose 202 H (74-99) mg/dL Triglycerides 211.00 H (0.00-149.00) mg/dL VLDL Cholesterol, Calc 42.20 H (5.00-40.00) mg/dL HDL Cholesterol 77.10 H (40.00-60.00) mg/dL
--- NOTE | 2022-07-09 13:10 | CDI ---
Documentation Clarification Form Date: 07/09/2022 12:59:35 PM From: Nelli Batres CCS, CCDS Admit Date: 07/07/2022 11:34:00 PM Patient Name: Kelly Jensen Visit Number: [id number] Discharge Date: ATTENTION: The Clinical Documentation Specialists (CDI) and [facility] Coding Staff appreciate your assistance in clarifying documentation. Please respond to the clarification below the line at the bottom and electronically sign. The CDI & [facility] Coding staff will review the response and follow-up if needed. Please note: Queries are made part of the Legal Health Record. If you have any questions, please contact the author of this message via ITS. Dr. Elio Loredo: Your patient has the documented diagnosis of Acute Heart Failure, type unknown, ECHO pending in the 07/08 Cardiology Consult an in the subsequent Progress Note on 07/09. Additional information regarding the Type & Acuity of CHF is requested. History/Risk Factors per the 07/08 H/P: Hypertension, Morbid Obesity w/BMI 56.7, Osteoarthritis, Depression. Clinical Indicators: Presented to the ED on 07/07 with SOB and bilateral lower leg edema, chest tightness. Admit with new onset Congestive Heart Failure 07/07 VS: T 98.2, P 68, 58; R 24, 18 (sob); BP 167/77, 129/65; PO 95 RA, BMI: 56.7 07/07 LAB: WBC 14.9, Neut 11.3; APTT 21.2, D silva 0.73; Na 136, BUN 26, ALT 48, Triglycerides 211.00, VLDL Cholesterol, Calc 42.20, HDL Cholesterol 77.10 07/07 BNP 938 07/07 CXR: Cardiomegaly and mild pulmonary vascular congestion, Correlate with BNP for CHF. 07/07 CT Chest: No PE. Moderate fat containing posterior right side diaphragmatic hernia. 07/09 CXR: No acute cardiopulmonary process 07/08 ECHO: Concentric left ventricular hypertrophy with normal LV function, Mild MR, EF 55%. Treatment 07/07: Heart healthy diet, Daily weights, I&O, kidney function monitored, O2, IV Lasix 40 mg x1, IV Zofran 4 mg q8H/prn. In your professional opinion, can you please clarify the Type & Acuity of CHF? [ ] Acute Diastolic Heart Failure [ ] Acute on Chronic Diastolic Heart Failure [ ] Heart Failure is ruled out [ ] Other, please specify [ xx] Unable to determine (Template Last Revised: November 2020) MTDD
[2022-07-09] MEDS: FAMOTIDINE 20 MG TAB PO SCH (20:30)
--- NOTE | 2022-07-09 21:54 | P.PN ---
Subjective This is a pleasant 52 years old female with past medical history of Hypertension, Osteoarthritis . PCP is Dr. Barrett Patient presents with dyspnea with exertion or overt about 4 days associated with leg swelling. Patient also has been having some mild chest pain and back pain. She states her pain is 5/10, on the front of the chest, central, nonradiating, about 5/10 in severity and felt like tightness as per patient Patient went to urgent care and they checked her oxygen was 92% on room air No coughing, no abdominal pain or vomiting or diarrhea, no headache or dizziness, no weakness or numbness, no urinary problem or urgency. She denies smoking, alcohol or illicit drugs Vitas looks stable, patient is slightly bradycardic around 56-58. Labs showing mild leukocytosis 14.9, d-dimer slightly elevated at 0.73. BMP and liver enzymes are unremarkable. Troponin 3 are negative less than 0.012. ProBNP is 983. CT of the chest, for chest pain and elevated d-dimer showing negative for pulmonary embolism moderate right-sided diaphragmatic hernia and no suspicious lung mass or infiltrate Chest x-ray: Mild pulmonary congestion in emergency room patient received Lasix 1 07/09/2022 Today patient states her breathing significantly better he she denies chest pain. She's on room air. Repeat chest x-ray looks normal. Repeat proBNP is low. Residue Furnace Operator evaluated the patient and change her IV Lasix 40 mg twice daily and total dose 20 mg daily. Echocardiogram showed ejection fraction 55%. Patient was cleared for discharge by geospatial technician pro-calcitonin was still pending the late evening for example when we checked at 6 PM. We'll keep under the patient for 24 hours and possible discharge in the morning if she keeps improvement Objective - Vital Signs Vital signs: Vital Signs Temp 98.5 F 07/09/22 20:00 Pulse 65 07/09/22 20:00 Resp 18 07/09/22 20:00 BP 112/66 07/09/22 20:00 Pulse Ox 95 07/09/22 20:00 FiO2 Intake & Output 07/09/22 07/09/22 07/10/22 06:59 18:59 06:59 Intake Total 540 Output Total 700 Balance -700 540 Weight 140.5 kg Intake: Oral 540 Output: Urine 700 - Exam GENERAL: The patient is alert and oriented x3, not in any acute distress. Morbidly obese HEENT: Pupils are round and equally reacting to light. EOMI. No scleral icterus. No conjunctival pallor. Normocephalic, atraumatic. No pharyngeal erythema. No thyromegaly. CARDIOVASCULAR: S1 and S2 present. No murmurs, rubs, or gallops. PULMONARY: Chest is clear to auscultation, no wheezing or crackles. ABDOMEN: Soft, nontender, nondistended, normoactive bowel sounds. No palpable organomegaly. MUSCULOSKELETAL: No joint swelling or deformity. EXTREMITIES: No cyanosis, clubbing, or pedal edema. NEUROLOGICAL: Gross neurological examination did not reveal any focal deficits. SKIN: No rashes. no petechiae. - Labs CBC & Chem 7: 07/09/22 08:37 07/09/22 08:37 Labs: Abnormal Lab Results - Last 24 Hours (Table) 07/09/22 07/09/22 Range/Units 08:37 08:37 WBC 11.6 H (3.8-10.6) k/uL Neutrophils # 7.8 H (1.3-7.7) k/uL Sodium 135 L (137-145) mmol/L Chloride 94 L (98-107) mmol/L BUN 22 H (7-17) mg/dL Glucose 202 H (74-99) mg/dL Assessment and Plan Assessment: new-onset acute CHF, ejection fraction 55% mild. Resolved with treatment. moderate-sized right-sided diaphragmatic hernia hypertension History of depression History of osteoarthitis Obesity with BMI of 57.6 Plan: This is a pleasant result female who presents with CHF Patient was cleared for discharge by geospatial technician. Continue with oral Lasix 20 mg daily Monitor for another 24 hours. No need for antibiotics asterisks a normal, no fever, production gallstone in is normal Labs and medication were reviewed.. Continue same treatment. Continue with symptomatic treatment. Resume home medication. Monitor lytes and vitals. DVT and GI prophylaxis. Further recommendations as per clinical course of the p atient DVT prophylaxis: Subcutaneous heparin GI Prophylaxis: Pepcid PT/OT: Pending Prognosis is guarded
[2022-07-10 08:08] VITALS: BP 131/68; PULSE 74; TEMP 98.2
[2022-07-10] MEDS: FLUoxetine HCL 20 MG CAP PO SCH (08:08)
[2022-07-10] MEDS: FAMOTIDINE 20 MG TAB PO SCH (08:08)
[2022-07-10] MEDS: FUROSEMIDE 20 MG TAB PO SCH (08:08)
[2022-07-10] MEDS: atenoloL 25 MG TAB PO SCH (08:08)
[2022-07-10] MEDS: OXYBUTYNIN 15 MG TAB.ER.24 PO SCH (08:09)
[2022-07-10] MEDS: HEPARIN SODIUM,PORCINE/PF 5,000 UNIT/0.5 ML SYRINGE SQ SCH (08:09)
--- NOTE | 2022-07-10 10:39 | P.PN ---
Subjective Progress Note Date: 07/10/22 HISTORY OF PRESENT ILLNESS: This is a 52-year-old female with a past medical history significant for hypertension and morbid obesity. 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 We have been asked to see the patient in consultation for congestive heart failure. Patient examined at the bedside. Patient states that she was diagnosed with Covid a few weeks ago. She states that she was vaccinated for Covid and had a mild case. She reports over the past week that she has been having some shortness of breath, intermittent chest pains, and lower extremity edema. The patient presented to urgent care for further evaluation was directed to come to the emergency room. She received a 1 time dose of IV Lasix in the emergency room. She reports a lot of urine output following her lasix dose. She reports improvement in her lower extremity edema and SOB this morning. Denies chest pain or pressure. Vital signs are stable. * Bedside telemetry reveals sinus mechanism. No EKG available at the time of evaluation. * Chest xray cardiomegaly and mild pulmonary vascular congestion. * Chest CT: Negative for pulmonary embolism * Laboratory data: WBC 14.9. Hemoglobin 12.2. Platelet count 189. D-dimer 0.73. Troponin negative 3. ProBNP 938. * Current home cardiac medications include atenolol 25 mg twice a day 07/09/2022 Patient examined this morning at the bedside. Patient denies chest pain or pressure. She denies shortness of breath. She remains on IV Lasix. Patient's lower extremity edema has resolved. Echocardiogram completed revealing ejection fraction 55%. Vital signs are stable. 07/10/2022 Patient examined this morning at the bedside. Patient denies chest pain or pressure. She denies shortness of breath. She remains on oral Lasix. She is anticipating discharge home this morning. PHYSICAL EXAM: VITAL SIGNS: Reviewed. GENERAL: Well-developed in no acute distress. HEENT: Head is normocephalic. Pupils are equal, round. Sclerae anicteric. Mucous membranes of the mouth are moist. Neck supple. No JVD or thyromegaly LUNGS: Respirations even and unlabored. Lungs diminished to auscultation bilaterally. HEART: Regular rate and rhythm. S1 and S2 heard. ABDOMEN: Soft. Nondistended. Nontender. EXTREMITIES: Normal range of motion. No clubbing or cyanosis. Peripheral pulses intact. Minimal lower extremity edema NEUROLOGIC: Awake and alert. Oriented x 3. ASSESSMENT: Shortness of breath Acute heart failure with preserved ejection fraction, resolved Recent Covid infection Hypertension Morbid obesity PLAN: Continue oral Lasix Patient is currently stable for discharge home today from a cardiac standpoint Patient is to follow up in [address] Loredo Nurse practitioner note has been reviewed by physician. Signing provider agrees with the documented findings, assessment, and plan of care. Objective - Vital Signs Vital signs: Vital Signs Temp 98.2 F 07/10/22 08:06 Pulse 74 07/10/22 08:06 Resp 18 07/10/22 08:06 BP 131/68 07/10/22 08:06 Pulse Ox 96 07/10/22 08:06 FiO2 Intake & Output 07/09/22 07/10/22 07/10/22 18:59 06:59 18:59 Intake Total 540 180 Balance 540 180 Weight 140.7 kg Intake: Oral 540 180 Other: # Voids 2 - Labs CBC & Chem 7: 07/09/22 08:37 07/09/22 08:37
--- NOTE | 2022-07-10 21:11 | P.DS ---
Providers Date of admission: 07/07/22 23:34 Attending physician: Dariusz Wallace Consults: 07/07/22 23:35 Consult Physician Routine Consulting Provider: Elio Loredo Consult Reason/Comments: new heart failure Do you want consulting provider notified?: Yes, Notify in am Primary care physician: Mela Rodriguez Hospital Course: Diagnoses new-onset acute CHF, ejection fraction 55%, very mild. Resolved completely in 1-2 days with treatment. moderate-sized right-sided diaphragmatic hernia , asymptomatic hypertension History of depression, not active tissue History of osteoarthitis Obesity with BMI of 57.6 Hospital course: his is a pleasant 52 years old female with past medical history of Hypertension, Osteoarthritis . PCP is Dr. Barrett Patient presents with dyspnea with exertion or overt about 4 days associated with mild leg swelling. Chest x-ray: Mild pulmonary congestion . CT of the chest, for chest pain and elevated d-dimer showing negative for pulmonary embolism moderate right-sided d iaphragmatic hernia and no suspicious lung mass or infiltrate. Ultrasound is negative for DVT in both legs. Patient received IV Lasix and evaluated by relay checker, and next day her symptoms completely resolved, repeat chest x-ray is normal. proCalcitonin is normal. Patient became completely asymptomatic, she is walking normally with no dyspnea, she denies chest pain, no neurological symptoms, no GI or urinary symptoms. No fever. Patient eager to be discharged home Patient was cleared for discharge by relay checker. Problems and management plan were discussed with the patient and he verbalized understanding and acceptance Patient was found stable and can be discharged home however he needs follow-up as an outpatient. Patient was instructed to follow up with PCP Dr. Barrett within one week and patient agrees Patient was instructed to follow up with Dr. Laura in 3 weeks and she agrees Physical exam Gen: patient is a AAOx3, no distress CVS: S1-S2, RRR, no murmur Lungs: B/L CTA, no wheezing Abdomen: soft, no distention, no tenderness, positive bowel sounds Extremity: no leg edema or induration Time spent more than 35 minutes Patient Condition at Discharge: Fair Plan - Discharge Summary Discharge Rx Participant: No New Discharge Prescriptions: New RX: Furosemide [Lasix] 20 mg PO DAILY #30 tab Continue RX: atenoloL [Tenormin] 25 mg PO BID RX: FLUoxetine HCL [PROzac] 40 mg PO DAILY RX: Albuterol Nebulized [Ventolin Nebulized] 2.5 mg INHALATION RT-QID PRN PRN Reason: Shortness Of Breath Discharge Medication List RX: FLUoxetine HCL [PROzac] 40 mg PO DAILY 03/05/22 [History] RX: atenoloL [Tenormin] 25 mg PO BID 03/05/22 [History] RX: Albuterol Nebulized [Ventolin Nebulized] 2.5 mg INHALATION RT-QID PRN 07/08/22 [History] RX: Furosemide [Lasix] 20 mg PO DAILY #30 tab 07/09/22 [Rx] Follow up Appointment(s)/Referral(s): Elio Loredo MD [STAFF PHYSICIAN] - 3 Weeks ([facility] office will call you with appointment date and time.) Michael Plaza MD [Primary Care Provider] - 07/14/22 9:30 am (we recommend to check your blood test with your doctor ) Patient Instructions/Handouts: Heart Failure (DC), Heart Healthy Diet (DC) Activity/Diet/Wound Care/Special Instructions: Heart healthy diet activity is restricted till you see your doctor Discharge Disposition: HOME SELF-CARE
== END 2022-07-10 10:13 | disposition home or self-care (01) | DRG 291 ==
LOC: EC 17:22 → 3SCARD 23:34
PROVIDERS: ADMIT Internal Medicine; ATTEND Internal Medicine
DX: I11.0 Hypertensive heart disease with heart failure (principal); I50.31 Acute diastolic (congestive) heart failure; Z68.43 Body mass index [BMI] 50.0-59.9, adult; M54.9 Dorsalgia, unspecified; E66.01 Morbid (severe) obesity due to excess calories; K44.9 Diaphragmatic hernia without obstruction or gangrene; D72.829 Elevated white blood cell count, unspecified; F32.A Depression, unspecified; F41.9 Anxiety disorder, unspecified; M19.90 Unspecified osteoarthritis, unspecified site; Z79.899 Other long term (current) drug therapy; Z86.16 Personal history of COVID-19; Z85.828 Personal history of other malignant neoplasm of skin
CPT/HCPCS: 36415; 71046; 71275; 80048; 80053; 80061; 83036; 83605; 83735; 83880; 84145; 84443; 84484; 85025; 85379; 85610; 85730; 87502; 93005; 93306; 93970; 96374; 96375; 99285

== ENCOUNTER → 2022-08-29 | Outpatient (CLI) | payer BC ==
[2022-08-29 14:27] LABS: ALT 28 U/L (8-44); AST 24 U/L (13-35); African American GFR (CKD) 85.8 (60.0-200.0); Albumin 4.4 g/dL (3.8-4.9); Albumin/Globulin Ratio 1.57 (1.60-3.17); Alkaline Phosphatase 61 U/L (41-126); BUN/Creat Ratio 14.11 Ratio (12.00-20.00); Blood Urea Nitrogen 12.7 mg/dL (9.0-27.0); Calcium 9.3 mg/dL (8.7-10.3); Carbon Dioxide 20.9 mmol/L (20.0-27.5); Chloride 104 mmol/L (96-109); Chol/HDL Ratio 3.41 Ratio; Globulin 2.8 g/dL (1.6-3.3); Glucose 115 mg/dL (70-110); LDL Cholesterol,Calculated 96.6 mg/dL (0.0-131.0); Potassium 4.1 mmol/L (3.5-5.5); Sodium 139 mmol/L (135-145); Total Protein 7.2 g/dL (6.2-8.2)
== END | disposition home or self-care (01) ==
LOC: LABWHC1 08:13
PROVIDERS: ATTEND Internal Medicine Interventional Cardiology
DX: I10 Essential (primary) hypertension (principal)
CPT/HCPCS: 36415; 80053; 80061

== ENCOUNTER → 2023-01-12 | Outpatient (CLI) | payer BC ==
[2023-01-12 18:11] LABS: HCT 38.4 % (37.2-46.3); HGB 12.3 g/dL (12.0-15.0); MCH 28.7 pg (27.0-32.0); MCV 89.5 fL (80.0-97.0); Mean Platelet Volume 11.2 fL (9.5-12.2); NRBC Per 100 WBC 0 /100 WBCS (0.0-0.0); Platelet Count 224 X 10*3/uL (140-440); RBC 4.29 X 10*6/uL (4.10-5.20); RDW 13.9 % (11.5-14.5)
[2023-01-12 23:31] LABS: African American GFR (CKD) 75.8 (60.0-200.0); Albumin 4.5 g/dL (3.8-4.9); Albumin/Globulin Ratio 1.68 (1.60-3.17); Anion Gap 14.5 mmol/L (10.00-18.00); BUN/Creat Ratio 17.65 Ratio (12.00-20.00); Blood Urea Nitrogen 17.6 mg/dL (9.0-27.0); Calcium 9.7 mg/dL (8.7-10.3); Carbon Dioxide 24.8 mmol/L (20.0-27.5); Globulin 2.7 g/dL (1.6-3.3); Non-African American GFR(CKD) 65.4 (60.0-200.0); Potassium 4.5 mmol/L (3.5-5.5); T4, Free (Free Thyroxine) 1.01 ng/dL (0.800-1.800); Total Bilirubin 0.3 mg/dL (0.30-1.20); Total Protein 7.2 g/dL (6.2-8.2)
== END | disposition home or self-care (01) ==
LOC: LABWHC1 11:20
PROVIDERS: ATTEND Internal Medicine
DX: R53.83 Other fatigue (principal)
CPT/HCPCS: 36415; 80053; 82306; 82607; 84439; 84443; 84481; 85027

== ENCOUNTER 2023-02-18 13:39 | Observation (INO) | payer BC ==
--- NOTE | 2023-02-18 14:27 | XR ---
EXAMINATION TYPE: XR chest 2V DATE OF EXAM: 02/18/2023 COMPARISON: Chest x-ray July 09, 2022 and CTA chest July 07, 2022 HISTORY: Difficulty in breathing. TECHNIQUE: Frontal and lateral views of the chest are obtained. FINDINGS: On the lateral view posterior right medial diaphragmatic hernia mimics posterior basilar co nsolidation. There is no suspicious peripheral focal air space opacity, pleural effusion, or pneumoth orax seen. The cardiac silhouette size is mildly enlarged. The osseous structures are intact. IMPRESSION: Mild cardiomegaly without acute pulmonary process.
--- NOTE | 2023-02-18 14:31 | ED ---
SOB HPI - General Chief Complaint: Shortness of Breath Stated Complaint: chest pain/SOB Time Seen by Provider: 02/18/23 13:54 Source: patient, RN notes reviewed Mode of arrival: ambulatory Limitations: no limitations - History of Present Illness Initial Comments: 52-year-old female presents emergency Department with chief complaint of chest pain/shortness breath. She's been having worsening shortness breath, chest pain. She correlates this with eating majority time states that she eats he feels like he can't get stuck and she has burning in her chest. She does admit that she had reflux issues she does have a history of congestive heart failure n o prior asthma or COPD. Patient denies any prior cardiac stents. Denies any leg pain like swelling no history DVT. - Related Data Home Medications Medication Instructions Recorded Confirmed FLUoxetine HCL [PROzac] 40 mg PO DAILY 03/05/22 02/18/23 atenoloL [Tenormin] 25 mg PO BID 03/05/22 02/18/23 Ergocalciferol (Vitamin D2) 1,250 mcg PO TH 02/18/23 02/18/23 [Drisdol (50,000 Iu)] Furosemide [Lasix] 20 mg PO DAILY PRN 02/18/23 02/18/23 Multivitamin [Multivitamins Adult 1 tab PO DAILY 02/18/23 02/18/23 Gummies] Allergies Allergy/AdvReac Type Severity Reaction Status Date / Time No Known Allergies Allergy Verified 02/18/23 15:34 Review of Systems ROS Statement: Those systems with pertinent positive or pertinent negative responses have been documented in the HPI. ROS Other: All systems not noted in ROS Statement are negative. Past Medical History Past Medical History: Heart Failure, Hypertension, Osteoarthritis (OA) Additional Past Medical History / Comment(s): skin cancer on face, Obese History of Any Multi-Drug Resistant Organisms: None Reported Past Surgical History: Section, Cholecystectomy, Hysterectomy, Orthopedic Surgery, Tonsillectomy, Tubal Ligation Additional Past Surgical History / Comment(s): RT KNEE ARTHROSCOPY X3, Moh's procedure Past Anesthesia/Blood Transfusion Reactions: No Reported Reaction Past Psychological History: Anxiety Smoking Status: Never smoker Past Alcohol Use History: None Reported Past Drug Use History: None Reported - Past Family History Mother Family Medical History: Cancer Additional Family Medical History / Comment(s): COLON General Exam Limitations: no limitations General appearance: alert, in no apparent distress Head exam: Present: atraumatic, normocephalic, normal inspection Eye exam: Present: normal appearance, PERRL, EOMI. Absent: scleral icterus, conjunctival injection, periorbital swelling ENT exam: Present: normal exam, normal oropharynx, mucous membranes moist Neck exam: Present: normal inspection, full ROM. Absent: tenderness, meningismus, lymphadenopathy Respiratory exam: Present: normal lung sounds bilaterally. Absent: respiratory distress, wheezes, rales, rhonchi, stridor Cardiovascular Exam: Present: regular rate, normal rhythm, normal heart sounds. Absent: systolic murmur, diastolic murmur, rubs, gallop, clicks GI/Abdominal exam: Present: soft, normal bowel sounds. Absent: distended, tenderness, guarding, rebound, rigid Course Vital Signs 02/18/23 13:41 Temperature 98.6 F Pulse Rate 64 Respiratory 20 Rate Blood Pressure 144/74 O2 Sat by Pulse 97 Oximetry Medical Decision Making - Medical Decision Making Was pt. sent in by a medical professional or institution (, PA, SCHEDULER, urgent care, hospital, or fpc...) When possible be specific @ -No Did you speak to anyone other than the patient for history (EMS, parent, family, police, friend...)? What history was obtained from this source @ -No Did you review nursing and triage notes (agree or disagree)? Why? @ -I reviewed and agree with nursing and triage notes Were old charts reviewed (outside hosp., previous admission, EMS record, old EKG, old radiological studies, urgent care reports/EKG's, fpc records)? Report findings @ -No old charts were reviewed Differential Diagnosis (chest pain, altered mental status, abdominal pain women, abdominal pain men, vaginal bleeding, weakness, fever, dyspnea, syncope, headache, dizziness, GI bleed, back pain, seizure, CVA, palpatations, mental health, musculoskeletal)? @ -Differential Dyspnea: Coronary syndrome, arrhythmia, tamponade, asthma, COPD, pulmonary embolism, pneumonia, pneumothorax, pulmonary effusion, anaphylaxis, diabetic ketoacidosis, flailed chest, pulmonary contusion, diaphragmatic rupture, anemia, neuromuscular, this is not meant to be an all-inclusive list. le EKG interpreted by me (3pts min.). @ -As above X-rays interpreted by me (1pt min.). @ -Chest x-ray shows cardiomegaly CT interpreted by me (1pt min.). @ -None done U/S interpreted by me (1pt. min.). @ -None done What testing was considered but not performed or refused? (CT, X-rays, U/S, labs)? Why? @ -Echocardiogram will be completed inpatient What meds were considered but not given or refused? Why? @ -None Did you discuss the management of the patient with other professionals (professionals i.e. DrAna, PA, SCHEDULER, lab, RT, psych nurse, social media campaign manager, seaming machine operator, teacher, hospital admissions officer, vocational case manager)? Give summary @ -Discuss case with [facility] hospitalist for admission for cardiology consult and echocardiogram Was smoking cessation discussed for >3mins.? @ -No Was critical care preformed (if so, how long)? @ -No Were there social determinants of health that impacted care today? How? (Homeles sness, low income, unemployed, alcoholism, drug addiction, transportation, low edu. Level, literacy, decrease access to med. care, residential, rehab)? @ -No Was there de-escalation of care discussed even if they declined (Discuss DNR or withdrawal of care, Hospice)? DNR status @ -No What co-morbidities impacted this encounter? (DM, HTN, Smoking, COPD, CAD, Cancer, CVA, ARF, Chemo, Hep., AIDS, mental health diagnosis, sleep apnea, morbid obesity)? @ -CHF Was patient admitted / discharged? Hospital course, mention meds given and route, prescriptions, significant lab abnormalities, going to OR and other pertinent info. @ -Admitted to the hospital after initial workup including CBC, comp, troponin, EKG and chest x-ray revealed no acute findings patient does have concerning symptoms including exertional dyspnea and chest pain patient For cardiac rule out. Undiagnosed new problem with uncertain prognosis? @ -No Drug Therapy requiring intensive monitoring for toxicity (Heparin, Nitro, Insulin, Cardizem)? @ -No Were any procedures done? @ -No Diagnosis/symptom? @ -Exertional dyspnea, chest pain Acute, or Chronic, or Acute on Chronic? @ -Acute Uncomplicated (without systemic symptoms) or Complicated (systemic symptoms)? @ -, Complicated Side effects of treatment? @ -No Exacerbation, Progression, or Severe Exacerbation? @ -No Poses a threat to life or bodily function? How? (Chest pain, [place], [place], pneumonia, PE, COPD, DKA, ARF, appy, cholecystitis, CVA, Diverticulitis, Homicidal, Suicidal, threat to staff... and all critical care pts) @ -yes at risk for cardiac arrest - Lab Data Result diagrams: 02/18/23 14:14 02/18/23 14:14 Lab Results 02/18/23 02/18/23 02/18/23 Range/Units 14:14 14:14 14:14 WBC 7.2 (3.8-10.6) k/uL RBC 4.35 (3.80-5.40) m/uL Hgb 12.5 (11.4-16.0) gm/dL Hct 37.0 (34.0-46.0) % MCV 85.2 (80.0-100.0) fL MCH 28.7 (25.0-35.0) pg MCHC 33.7 (31.0-37.0) g/dL RDW 14.3 (11.5-15.5) % Plt Count 200 (150-450) k/uL MPV 8.6 Neutrophils % 63 % Lymphocytes % 26 % Monocytes % 5 % Eosinophils % 2 % Basophils % 0 % Neutrophils # 4.6 (1.3-7.7) k/uL Lymphocytes # 1.9 (1.0-4.8) k/uL Monocytes # 0.4 (0-1.0) k/uL Eosinophils # 0.2 (0-0.7) k/uL Basophils # 0.0 (0-0.2) k/uL PT 10.2 (9.0-12.0) sec INR 1.0 (<1.2) APTT 23.6 (22.0-30.0) sec D-Dimer 0.37 (<0.60) mg/L FEU Sodium 141 (137-145) mmol/L Potassium 4.4 (3.5-5.1) mmol/L Chloride 101 (98-107) mmol/L Carbon Dioxide 28 (22-30) mmol/L Anion Gap 12 mmol/L BUN 18 H (7-17) mg/dL Creatinine 0.92 (0.52-1.04) mg/dL Est GFR (CKD-EPI)AfAm 84 (>60 ml/min/1.73 sqM) Est GFR (CKD-EPI)NonAf 73 (>60 ml/min/1.73 sqM) Glucose 136 H (74-99) mg/dL Calcium 9.9 (8.4-10.2) mg/dL Magnesium 1.8 (1.6-2.3) mg/dL Total Bilirubin 0.5 (0.2-1.3) mg/dL AST 31 (14-36) U/L ALT 37 H (4-34) U/L Alkaline Phosphatase 59 (38-126) U/L Troponin I (0.000-0.034) ng/mL NT-Pro-B Natriuret Pep pg/mL Total Protein 7.5 (6.3-8.2) g/dL Albumin 4.6 (3.5-5.0) g/dL 02/18/23 02/18/23 Range/Units 14:14 14:14 WBC (3.8-10.6) k/uL RBC (3.80-5.40) m/uL Hgb (11.4-16.0) gm/dL Hct (34.0-46.0) % MCV (80.0-100.0) fL MCH (25.0-35.0) pg MCHC (31.0-37.0) g/dL RDW (11.5-15.5) % Plt Count (150-450) k/uL MPV Neutrophils % % Lymphocytes % % Monocytes % % Eosinophils % % Basophils % % Neutrophils # (1.3-7.7) k/uL Lymphocytes # (1.0-4.8) k/uL Monocytes # (0-1.0) k/uL Eosinophils # (0-0.7) k/uL Basophils # (0-0.2) k/uL PT (9.0-12.0) sec INR (<1.2) APTT (22.0-30.0) sec D-Dimer (<0.60) mg/L FEU Sodium (137-145) mmol/L Potassium (3.5-5.1) mmol/L Chloride (98-107) mmol/L Carbon Dioxide (22-30) mmol/L Anion Gap mmol/L BUN (7-17) mg/dL Creatinine (0.52-1.04) mg/dL Est GFR (CKD-EPI)AfAm (>60 ml/min/1.73 sqM) Est GFR (CKD-EPI)NonAf (>60 ml/min/1.73 sqM) Glucose (74-99) mg/dL Calcium (8.4-10.2) mg/dL Magnesium (1.6-2.3) mg/dL Total Bilirubin (0.2-1.3) mg/dL AST (14-36) U/L ALT (4-34) U/L Alkaline Phosphatase (38-126) U/L Troponin I <0.012 (0.000-0.034) ng/mL NT-Pro-B Natriuret Pep 321 pg/mL Total Protein (6.3-8.2) g/dL Albumin (3.5-5.0) g/dL - EKG Data -: EKG Interpreted by Sc EKG Comments: EKG performed at 13:50 sinus bradycardia with rate of 57 [place] 152 QRS 86 QT/ QTC 449/443 Disposition Clinical Impression: Chest pain, Exertional dyspnea Disposition: ADMITTED IP TO THIS HOSP Condition: Fair Referrals: Michael Plaza MD [Primary Care Provider] - 1-2 days Time of Disposition: 15:41
[2023-02-18 14:37] LABS: Basophils % (A) 0 %; Eosinophils # (A) 0.2 k/uL (0-0.7); Eosinophils % (A) 2 %; HGB 12.5 gm/dL (11.4-16.0); Lymphocytes # (A) 1.9 k/uL (1.0-4.8); Lymphocytes % (A) 26 %; MCH 28.7 pg (25.0-35.0); MCHC 33.7 g/dL (31.0-37.0); MCV 85.2 fL (80.0-100.0); Mean Platelet Volume 8.6; Monocytes # (A) 0.4 k/uL (0-1.0); Monocytes % (A) 5 %; Neutrophils # (A) 4.6 k/uL (1.3-7.7); Neutrophils % (A) 63 %; Platelet Count 200 k/uL (150-450); RBC 4.35 m/uL (3.80-5.40); RDW 14.3 % (11.5-15.5); WBC 7.2 k/uL (3.8-10.6)
[2023-02-18 14:57] LABS: Albumin 4.6 g/dL (3.5-5.0); Calcium 9.9 mg/dL (8.4-10.2); Magnesium 1.8 mg/dL (1.6-2.3); Potassium 4.4 mmol/L (3.5-5.1); Total Bilirubin 0.5 mg/dL (0.2-1.3); Total Protein 7.5 g/dL (6.3-8.2)
[2023-02-18 14:59] LABS: Partial Thromboplastin Time 23.6 sec (22.0-30.0); Prothrombin Time 10.2 sec (9.0-12.0)
[2023-02-18] MEDS ORDERED: NALOXONE 0.4 MG/ML 1 ML VIAL IV PRN (15:41)
[2023-02-18] MEDS ORDERED: FUROSEMIDE 20 MG TAB PO PRN (15:43)
[2023-02-18] MEDS: atenoloL 25 MG TAB PO SCH (20:03)
--- NOTE | 2023-02-18 22:41 | P.HPIM ---
History of Present Illness This is a pleasant 52 years old female with past medical history of heart failure, hypertension, osteoarthritis.she is a patient of Dr. Plaza Patient presents because of chest pain she, she has this chest pain on and off for about one week but over the last 150s came more constant, it is central radiating across the chest felt like someone sitting on her chest although earlier it looks like heartburn. Associated with little dyspnea. No coughing. No change in urine or bowel habits. No hepatic weakness numbness Patient denies smoking alcohol or illicit tracts Heart transplant in the low side but rest of vitals are stable Patient was unremarkable labs including CBC INR, BMP and liver enzymes. Troponin 2 are negative. ProBNP is 321 D-dimer -0.37 EKG shows sinus bradycardia at [address] changes Chest x-ray: Mild cardiomegaly without acute pulmonary process Review of Systems Review of systems CONSTITUTIONAL: No fever, no malaise, no fatigue. HEENT: No recent visual problems or hearing problems. Denied any sore throat. CARDIOVASCULAR: No orthopnea, PND, no palpitations, no syncope. PULMONARY: No shortness of breath, no cough, no hemoptysis. GASTROINTESTINAL: No diarrhea, no nausea, no vomiting, no abdominal pain. Normoactive bowel sounds. NEUROLOGICAL: No headaches, no weakness, no numbness. HEMATOLOGICAL: Denies any bleeding or petechiae. GENITOURINARY: Denies any burning micturition, frequency, or urgency. MUSCULOSKELETAL/RHEUMATOLOGICAL: Denies any joint pain, swelling, or any muscle pain. ENDOCRINE: Denies any polyuria or polydipsia. Past Medical History Past Medical History: Heart Failure, Hypertension, Osteoarthritis (OA) Additional Past Medical History / Comment(s): skin cancer on face, Obese History of Any Multi-Drug Resistant Organisms: None Reported Past Surgical History: Section, Cholecystectomy, Hysterectomy, Orthopedic Surgery, Tonsillectomy, Tubal Ligation Additional Past Surgical History / Comment(s): RT KNEE ARTHROSCOPY X3, Moh's procedure Past Anesthesia/Blood Transfusion Reactions: No Reported Reaction Past Psychological History: Anxiety Smoking Status: Never smoker Past Alcohol Use History: None Reported Past Drug Use History: None Reported - Past Family History Mother Family Medical History: Cancer Additional Family Medical History / Comment(s): COLON Medications and Allergies Home Medications Medication Instructions Recorded Confirmed Type FLUoxetine HCL [PROzac] 40 mg PO DAILY 03/05/22 02/18/23 History atenoloL [Tenormin] 25 mg PO BID 03/05/22 02/18/23 History Ergocalciferol (Vitamin D2) 1,250 mcg PO TH 02/18/23 02/18/23 History [Drisdol (50,000 Iu)] Furosemide [Lasix] 20 mg PO DAILY PRN 02/18/23 02/18/23 History Multivitamin [Multivitamins Adult 1 tab PO DAILY 02/18/23 02/18/23 History Gummies] Allergies Allergy/AdvReac Type Severity Reaction Status Date / Time No Known Allergies Allergy Verified 02/18/23 15:34 Physical Exam Vitals: Vital Signs Temp Pulse Resp BP Pulse Ox 02/18/23 13:41 98.6 F 64 20 144/74 97 Intake and Output 02/18/23 02/18/23 02/18/23 06:59 14:59 22:59 Other: Weight 144.242 kg GENERAL: The patient is alert and oriented x3, not in any acute distress. Well developed, well nourished. HEENT: Pupils are round and equally reacting to light. EOMI. No scleral icterus. No conjunctival pallor. Normocephalic, atraumatic. No pharyngeal erythema. No thyromegaly. CARDIOVASCULAR: S1 and S2 present. No murmurs, rubs, or gallops. PULMONARY: Chest is clear to auscultation, no wheezing or crackles. ABDOMEN: Soft, nontender, nondistended, normoactive bowel sounds. No palpable organomegaly. MUSCULOSKELETAL: No joint swelling or deformity. EXTREMITIES: No cyanosis, clubbing, or pedal edema. NEUROLOGICAL: Gross neurological examination did not reveal any focal deficits. SKIN: No rashes. no petechiae. Results CBC & Chem 7: 02/18/23 14:14 02/18/23 14:14 Labs: Abnormal Lab Results - Last 24 Hours (Table) 02/18/23 Range/Units 14:14 BUN 18 H (7-17) mg/dL Glucose 136 H (74-99) mg/dL ALT 37 H (4-34) U/L Assessment and Plan Assessment: Chest pain, rule out cardiac causes Hypertension. Hyperlipidemia Obesity with BMI 58.2 History of osteoarthritis Plan: patient patient is started on baby aspirin. Cardiology consult Check echocardiogram Labs and medication were reviewed.. Continue same treatment. Continue with symptomatic treatment. Resume home medication. Monitor labs and vitals. DVT and GI prophylaxis. Further recommendations as per clinical course of the patient DVT prophylaxis: Subcutaneous heparin GI Prophylaxis: Pepcid PT/OT: Pending Prognosis is guarded
[2023-02-18] MEDS: ASPIRIN 81 MG PO SCH (22:49)
[2023-02-19] MEDS: HEPARIN SODIUM,PORCINE/PF 5,000 UNIT/0.5 ML SYRINGE SQ SCH ×2 (08:27→21:11)
[2023-02-19] MEDS: FLUoxetine HCL 20 MG CAP PO SCH (08:28)
[2023-02-19] MEDS: ASPIRIN 81 MG PO SCH (08:28)
[2023-02-19] MEDS: atenoloL 25 MG TAB PO SCH ×2 (08:38→21:12)
[2023-02-19] MEDS ORDERED: FAMOTIDINE 20 MG/2 ML VIAL IV SCH (09:00)
[2023-02-19 10:14] LABS: Chol/HDL Ratio 3.85 Ratio; LDL Cholesterol,Calculated 138.1 mg/dL (0.0-131.0)
--- NOTE | 2023-02-19 10:18 | P.CRDCN ---
History of Present Illness Consult date: 02/19/23 Requesting physician: Willard Farris Reason for Consult (text): chest pain Chief complaint: chest pain History of present illness: [id number] female patient who follows with Dr. Loredo in the office. She has a history of hypertension and was hospitalized in June with evidence of congestive heart failure with preserved LV systolic function. At that time she underwent echocardiogram which showed a normal ejection fraction with mild MR mild TR and subsequently underwent a stress echocardiogram in the office that showed normal EF with no evidence of ischemia. She presented this admission with complaints of chest discomfort. She has been getting chest discomfort when she lays down at night. Prior to admission she developed some significant chest discomfort and shortness of breath after eating some lithuanian fries and she felt as if they were stuck. She also has some chest tenderness to palpation. Positive and negative 3 there's been no evidence of ischemia on EKG. Vital si gns have been stable. Since June she has been trying to increase her activity. She bowls a few times a week and walks her dog regularly. She has no exertional symptoms. Her breathing has been stable. She has no edema. She uses her Lasix only occasionally on weekends. She has been maintaining a low sodium diet and is cut out soda from her diet. She's had no palpitations, dizziness or lightheadedness. Past Medical History Past Medical History: Heart Failure, Hypertension, Osteoarthritis (OA) Additional Past Medical History / Comment(s): skin cancer on face, Obese History of Any Multi-Drug Resistant Organisms: None Reported Past Surgical History: Section, Cholecystectomy, Hysterectomy, Orthopedic Surgery, Tonsillectomy, Tubal Ligation Additional Past Surgical History / Comment(s): RT KNEE ARTHROSCOPY X3, Moh's procedure Past Anesthesia/Blood Transfusion Reactions: No Reported Reaction Past Psychological History: Anxiety Smoking Status: Never smoker Past Alcohol Use History: None Reported Past Drug Use History: None Reported - Past Family History Mother Family Medical History: Cancer Additional Family Medical History / Comment(s): COLON Medications and Allergies Home Medications Medication Instructions Recorded Confirmed Type FLUoxetine HCL [PROzac] 40 mg PO DAILY 03/05/22 02/18/23 History atenoloL [Tenormin] 25 mg PO BID 03/05/22 02/18/23 History Ergocalciferol (Vitamin D2) 1,250 mcg PO TH 02/18/23 02/18/23 History [Drisdol (50,000 Iu)] Furosemide [Lasix] 20 mg PO DAILY PRN 02/18/23 02/18/23 History Multivitamin [Multivitamins Adult 1 tab PO DAILY 02/18/23 02/18/23 History Gummies] Allergies Allergy/AdvReac Type Severity Reaction Status Date / Time No Known Allergies Allergy Verified 02/18/23 15:34 Physical Exam Vitals: Vital Signs Temp Pulse Pulse Resp BP BP Pulse Ox 02/19/23 08:00 60 16 02/19/23 07:15 97.8 F 60 16 132/71 97 02/19/23 02:00 97.9 F 64 15 139/79 96 02/18/23 20:00 97.8 F 60 16 143/83 94 L 02/18/23 18:00 65 18 125/96 98 02/18/23 17:00 55 L 18 124/64 98 02/18/23 16:00 59 L 18 132/65 99 02/18/23 15:57 56 L 18 132/65 98 02/18/23 13:41 98.6 F 64 20 144/74 97 Intake and Output 02/18/23 02/19/23 02/19/23 22:59 06:59 14:59 Other: # Voids 0 1 Weight 144.242 kg PHYSICAL EXAMINATION: This is a 52-year-old female in no apparent distress at the time of my examination. HEENT: Head is atraumatic, normocephalic. Pupils are equal, round. Sclerae anicteric. Conjunctivae are clear. Mucous membranes of the mouth are moist. Neck is supple. There is no elevated jugular venous pressure. No carotid bruit is heard. CHEST EXAMINATION: Clear to auscultation bilaterally. No wheezes rales or rhonchi. Respirations even and nonlabored. Chest wall tenderness to palpation HEART EXAMINATION: Heart regular, positive S1 and S2. No S3. No S4. No clicks, rubs or murmurs. ABDOMEN: Soft, obese, nontender. Bowel sounds are heard. No organomegaly noted. EXTREMITIES: 2+ peripheral pulses with no evidence of peripheral edema and no calf tenderness noted. NEUROLOGIC EXAMINATION: Patient is awake, alert and oriented x3. Results 02/18/23 14:14 02/18/23 14:14 Cardiac Enzymes 02/18/23 02/18/23 02/18/23 Range/Units 14:14 14:14 17:58 AST 31 (14-36) U/L Troponin I <0.012 <0.012 (0.000-0.034) ng/mL 02/18/23 Range/Units 21:40 AST (14-36) U/L Troponin I <0.012 (0.000-0.034) ng/mL Coagulation 02/18/23 Range/Units 14:14 PT 10.2 (9.0-12.0) sec APTT 23.6 (22.0-30.0) sec CBC 02/18/23 Range/Units 14:14 WBC 7.2 (3.8-10.6) k/uL RBC 4.35 (3.80-5.40) m/uL Hgb 12.5 (11.4-16.0) gm/dL Hct 37.0 (34.0-46.0) % Plt Count 200 (150-450) k/uL Comprehensive Metabolic Panel 02/18/23 Range/Units 14:14 Sodium 141 (137-145) mmol/L Potassium 4.4 (3.5-5.1) mmol/L Chloride 101 (98-107) mmol/L Carbon Dioxide 28 (22-30) mmol/L BUN 18 H (7-17) mg/dL Creatinine 0.92 (0.52-1.04) mg/dL Glucose 136 H (74-99) mg/dL Calcium 9.9 (8.4-10.2) mg/dL AST 31 (14-36) U/L ALT 37 H (4-34) U/L Alkaline Phosphatase 59 (38-126) U/L Total Protein 7.5 (6.3-8.2) g/dL Albumin 4.6 (3.5-5.0) g/dL Current Medications Generic Name Dose Route Start Last Admin Trade Name Freq PRN Reason Stop Dose Admin Aspirin 81 mg 02/18/23 22:30 02/19/23 08:28 Aspirin 81 Mg PO 81 mg DAILY DIPIKA Administration Atenolol 25 mg 02/18/23 21:00 02/19/23 08:38 Atenolol 25 Mg Tab PO 25 mg BID DIPIKA Administration Famotidine 20 mg 02/19/23 09:00 02/19/23 08:27 Famotidine 20 Mg/2 Ml Vial IV 20 mg Q12HR DIPIKA Administration Fluoxetine HCl 40 mg 02/19/23 09:00 02/19/23 08:28 Fluoxetine Hcl 20 Mg Cap PO 40 mg DAILY DIPIKA Administration Furosemide 20 mg 02/18/23 15:43 Furosemide 20 Mg Tab PO DAILY PRN Edema Heparin Sodium (Porcine) 5,000 unit 02/19/23 09:00 02/19/23 08:27 Heparin Sodium,Porcine/Pf 5,000 Unit/0.5 Ml Syringe SQ Not Given Q12HR DIPIKA Naloxone HCl 0.2 mg 02/18/23 15:41 Naloxone 0.4 Mg/Ml 1 Ml Vial IV Q2M PRN Opioid Reversal Intake and Output 02/18/23 02/19/23 02/19/23 22:59 06:59 14:59 Other: # Voids 0 1 Weight 144.242 kg 02/18/23 14:14 02/18/23 14:14 EKG Interpretations (text) Sinus bradycardia Assessment and Plan Assessment: #1 chest pain, an acute coronary event has been ruled out, troponins of been negative 3, patient had normal stress echocardiogram in July 2022, symptoms appear to be GI in origin as well as a component of musculoskeletal discomfort #2 hypertension #3 history of CHF with preserved systolic function, patient appears to be euvolemic with no evidence of acute CHF at this time Plan: From cardiology's perspective we would recommend PPI. No need for further ca rdiac workup at this time. She is stable for discharge home from a cardiac standpoint. Patient has an appointment scheduled in the office soon and she will keep that appointment. ENGINEERING OPERATOR note has been reviewed, I agree with a documented findings and plan of care. Patient was seen and examined.
--- NOTE | 2023-02-19 14:37 | P.GSCN ---
History of Present Illness Consult date: 02/19/23 History of present illness: CHIEF COMPLAINT: Chest pain and epigastric pain HISTORY OF PRESENT ILLNESS: This is a 52-year-old female who over the last 2 weeks has been having pain in the epigastric area and chest especially after eating. She notices over the last 2 days worsening of the symptoms. Especially after eating fries she had an episode of shortness of breath and chest pain. She describes pain in the epigastric area as burning. She denies any actual reji sea or vomiting. She does report that she feels that the food is sticking in sitting in the epigastric area before moving on towards the stomach. She does have a known history of hiatal hernia and she reports possible H. pylori infection in the past. Surgical history does include a cholecystectomy. Patient seen evaluated by cardiology and they have cleared her from their standpoint and felt that her chest discomfort was most likely due to GI symptoms and possibly muscle skeletal symptoms. Patient reports bowel movements have been normal. Denies any fever chills or sweats. Patient noted to have a CT of the chest in June 2022 that did report a moderate fat-containing posterior right-sided diaphragmatic hernia. Patient does report the last EGD and colonoscopy was over 10 years ago. She thinks she may have been diagnosed with the H. pylori stomach infection at that time. PAST MEDICAL HISTORY: See below PAST SURGICAL HISTORY: See below MEDICATIONS: See below ALLERGIES: See below SOCIAL HISTORY: No illicit drug use. REVIEW OF SYSTEMS: CONSTITUTIONAL: Denies fever or chills. HEENT: Denies blurred vision, vision changes, or eye pain. Denies hemoptysis CARDIOVASCULAR: Denies chest pain or pressure. RESPIRATORY: No shortness of breath. GASTROINTESTINAL: See HPI for pertinent findings HEMATOLOGIC: Denies bleeding disorders. GENITOURINARY: Denies any blood in urine or increased urinary frequency. SKIN: Denies pruitis. Denies rash. PHYSICAL EXAM: VITAL SIGNS: Reviewed GENERAL: Well-developed in no acute distress. HEENT: No sclera icterus. Extraocular movements grossly intact. Moist buccal mucosa. Head is atraumatic, normocephalic. No nasal drainage. ABDOMEN: Soft. Obese. Nondistended. Tenderness to palpation epigastric area NEUROLOGIC: Alert and oriented. Cranial nerves II through XII grossly intact. LABORATORY DATA: WBC 7.2 Hgb 12.5 platelets 200 Sodium is 141 potassium 4.4 creatinine 0.92 Troponin negative 3 sets D-dimer 0.37 IMAGING: Chest x-ray mild cardiomegaly without acute pulmonary process ASSESSMENT: 1. Epigastric abdominal pain and chest pain 2. Dysphagia 3. History of hiatal hernia PLAN: -Patient scheduled for EGD tomorrow morning with Dr. Haider -Keep patient nothing by mouth after midnight -Change Protonix IV Thank you for this consultation Physician Press Writer note has been reviewed by physician. Signing provider agrees with the documented findings, assessment, and plan of care. Past Medical History Past Medical History: Heart Failure, Hypertension, Osteoarthritis (OA) Additional Past Medical History / Comment(s): skin cancer on face, Obese History of Any Multi-Drug Resistant Organisms: None Reported Past Surgical History: Section, Cholecystectomy, Hysterectomy, Orthopedic Surgery, Tonsillectomy, Tubal Ligation Additional Past Surgical History / Comment(s): RT KNEE ARTHROSCOPY X3, Moh's procedure Past Anesthesia/Blood Transfusion Reactions: No Reported Reaction Past Psychological History: Anxiety Smoking Status: Never smoker Past Alcohol Use History: None Reported Past Drug Use History: None Reported - Past Family History Mother Family Medical History: Cancer Additional Family Medical History / Comment(s): COLON Medications and Allergies Home Medications Medication Instructions Recorded Confirmed Type FLUoxetine HCL [PROzac] 40 mg PO DAILY 03/05/22 02/18/23 History atenoloL [Tenormin] 25 mg PO BID 03/05/22 02/18/23 History Ergocalciferol (Vitamin D2) 1,250 mcg PO TH 02/18/23 02/18/23 History [Drisdol (50,000 Iu)] Furosemide [Lasix] 20 mg PO DAILY PRN 02/18/23 02/18/23 History Multivitamin [Multivitamins Adult 1 tab PO DAILY 02/18/23 02/18/23 History Gummies] Allergies Allergy/AdvReac Type Severity Reaction Status Date / Time No Known Allergies Allergy Verified 02/18/23 15:34 Surgical - Exam Vital Signs Temp Pulse Resp BP Pulse Ox 98.6 F 64 20 144/74 97 02/18/23 13:41 02/18/23 13:41 02/18/23 13:41 02/18/23 13:41 02/18/23 13:41 Results - Labs 02/18/23 14:14 02/18/23 14:14 Abnormal Lab Results - Last 24 Hours (Table) 02/18/23 02/18/23 Range/Units 14:14 14:14 BUN 18 H (7-17) mg/dL Glucose 136 H (74-99) mg/dL ALT 37 H (4-34) U/L Triglycerides 179.00 H (0.00-149.00) mg/dL Cholesterol 235.00 H (0.00-200.00) mg/dL LDL Cholesterol, Calc 138.1 H (0.0-131.0) mg/dL HDL Cholesterol 61.10 H (40.00-60.00) mg/dL Diabetes panel 02/18/23 02/18/23 Range/Units 14:14 14:14 Sodium 141 (137-145) mmol/L Potassium 4.4 (3.5-5.1) mmol/L Chloride 101 (98-107) mmol/L Carbon Dioxide 28 (22-30) mmol/L BUN 18 H (7-17) mg/dL Creatinine 0.92 (0.52-1.04) mg/dL Glucose 136 H (74-99) mg/dL Calcium 9.9 (8.4-10.2) mg/dL AST 31 (14-36) U/L ALT 37 H (4-34) U/L Alkaline Phosphatase 59 (38-126) U/L Total Protein 7.5 (6.3-8.2) g/dL Albumin 4.6 (3.5-5.0) g/dL Triglycerides 179.00 H (0.00-149.00) mg/dL HDL Cholesterol 61.10 H (40.00-60.00) mg/dL Calcium panel 02/18/23 Range/Units 14:14 Calcium 9.9 (8.4-10.2) mg/dL Albumin 4.6 (3.5-5.0) g/dL Pituitary panel 02/18/23 Range/Units 14:14 Sodium 141 (137-145) mmol/L Potassium 4.4 (3.5-5.1) mmol/L Chloride 101 (98-107) mmol/L Carbon Dioxide 28 (22-30) mmol/L BUN 18 H (7-17) mg/dL Creatinine 0.92 (0.52-1.04) mg/dL Glucose 136 H (74-99) mg/dL Calcium 9.9 (8.4-10.2) mg/dL Adrenal panel 02/18/23 Range/Units 14:14 Sodium 141 (137-145) mmol/L Potassium 4.4 (3.5-5.1) mmol/L Chloride 101 (98-107) mmol/L Carbon Dioxide 28 (22-30) mmol/L BUN 18 H (7-17) mg/dL Creatinine 0.92 (0.52-1.04) mg/dL Glucose 136 H (74-99) mg/dL Calcium 9.9 (8.4-10.2) mg/dL Total Bilirubin 0.5 (0.2-1.3) mg/dL AST 31 (14-36) U/L ALT 37 H (4-34) U/L Alkaline Phosphatase 59 (38-126) U/L Total Protein 7.5 (6.3-8.2) g/dL Albumin 4.6 (3.5-5.0) g/dL
--- NOTE | 2023-02-19 14:45 | P.PN ---
Subjective This is a pleasant 52 years old female with past medical history of heart failure, hypertension, osteoarthritis.she is a patient of Dr. Plaza Patient presents because of chest pain she, she has this chest pain on and off for about one week but over the last 150s came more constant, it is central radiating across the chest felt like someone sitting on her chest although earlier it looks like heartburn. Associated with little dyspnea. No coughing. No change in urine or bowel habits. No hepatic weakness numbness Patient denies smoking alcohol or illicit tracts Heart transplant in the low side but rest of vitals are stable Patient was unremarkable labs including CBC INR, BMP and liver enzymes. Troponin 2 are negative. ProBNP is 321 D-dimer -0.37 EKG shows sinus bradycardia at [address] changes Chest x-ray: Mild cardiomegaly without acute pulmonary process 02/19/2023 Patient has been resolved, could be musculoskeletal related to GI. Cardiogenic cleared the patient After the patient and she is agreeable for possible EGD tomorrow by surgery team as patient has epigastric pain and tenderness although she reported it is 2/10 in severity but that affects her eating habits. Continue with IV Protonix Objective - Vital Signs Vital signs: Vital Signs Temp 97.8 F 02/19/23 07:15 Pulse 60 02/19/23 08:00 Resp 16 02/19/23 08:00 BP 132/71 02/19/23 07:15 Pulse Ox 97 02/19/23 07:15 FiO2 Intake & Output 02/18/23 02/19/23 02/19/23 18:59 06:59 18:59 Weight 144.242 kg Other: # Voids 1 - Exam -GENERAL: The patient is alert and oriented x3, not in any acute distress. Well morbidly obese HEENT: Pupils are round and equally reacting to light. EOMI. No scleral icterus. No conjunctival pallor. Normocephalic, atraumatic. No pharyngeal erythema. No thyromegaly. CARDIOVASCULAR: S1 and S2 present. No murmurs, rubs, or gallops. PULMONARY: Chest is clear to auscultation, no wheezing or crackles. -ABDOMEN: Soft, epigastric tenderness, nondistended, normoactive bowel sounds. No palpable organomegaly. MUSCULOSKELETAL: No joint swelling or deformity. EXTREMITIES: No cyanosis, clubbing, or pedal edema. NEUROLOGICAL: Gross neurological examination did not reveal any focal deficits. SKIN: No rashes. no petechiae. - Labs CBC & Chem 7: 02/18/23 14:14 02/18/23 14:14 Labs: Abnormal Lab Results - Last 24 Hours (Table) 02/18/23 02/18/23 Range/Units 14:14 14:14 BUN 18 H (7-17) mg/dL Glucose 136 H (74-99) mg/dL ALT 37 H (4-34) U/L Triglycerides 179.00 H (0.00-149.00) mg/dL Cholesterol 235.00 H (0.00-200.00) mg/dL LDL Cholesterol, Calc 138.1 H (0.0-131.0) mg/dL HDL Cholesterol 61.10 H (40.00-60.00) mg/dL Assessment and Plan Assessment: Chest pain, could be musculoskeletal or related to GI recovery cleared by speech therapist early intervention Epigastric pain and tenderness Hypertension. Hyperlipidemia Obesity with BMI 58.2 History of osteoarthritis Plan: Manager Online and cleared the patient Consult surgery team for EGD tomorrow Protonix IV Labs and medication were reviewed.. Continue same treatment. Continue with symptomatic treatment. Resume home medication. Monitor labs and vitals. DVT and GI prophylaxis. Further recommendations as per clinical course of the patient DVT prophylaxis: Subcutaneous heparin GI Prophylaxis: Ppi Prognosis is guarded
[2023-02-19] MEDS ORDERED: PANTOPRAZOLE 40 MG TABLET PO SCH (17:30)
[2023-02-19] MEDS ORDERED: FAMOTIDINE 20 MG TAB PO SCH (21:00)
[2023-02-19] MEDS: PANTOPRAZOLE 40 MG/10 ML VIAL IVP SCH (21:11)
[2023-02-20 06:28] LABS: HCT 39.7 % (34.0-46.0); HGB 12.7 gm/dL (11.4-16.0); MCH 28.2 pg (25.0-35.0); MCHC 31.8 g/dL (31.0-37.0); MCV 88.6 fL (80.0-100.0); Mean Platelet Volume 8.4; Platelet Count 200 k/uL (150-450); RBC 4.48 m/uL (3.80-5.40); RDW 14.1 % (11.5-15.5); WBC 7.1 k/uL (3.8-10.6)
[2023-02-20 06:37] LABS: African American GFR (CKD) 70 (>60 ml/min/1.73 sqM); Anion Gap 10 mmol/L; Blood Urea Nitrogen 24 mg/dL (7-17); Calcium 9.1 mg/dL (8.4-10.2); Carbon Dioxide 28 mmol/L (22-30); Chloride 102 mmol/L (98-107); Glucose 98 mg/dL (74-99); Non-African American GFR(CKD) 61 (>60 ml/min/1.73 sqM); Potassium 4.4 mmol/L (3.5-5.1); Sodium 140 mmol/L (137-145)
[2023-02-20] MEDS ORDERED: SODIUM CHLORIDE 0.9% 1,000 ML IV SCH (08:00)
[2023-02-20] MEDS: FLUoxetine HCL 20 MG CAP PO SCH (08:55)
[2023-02-20] MEDS: ASPIRIN 81 MG PO SCH (08:55)
[2023-02-20] MEDS: atenoloL 25 MG TAB PO SCH (08:55)
[2023-02-20 09:02] VITALS: RESP 16
[2023-02-20] MEDS: HEPARIN SODIUM,PORCINE/PF 5,000 UNIT/0.5 ML SYRINGE SQ SCH (09:30)
[2023-02-20] MEDS: PANTOPRAZOLE 40 MG/10 ML VIAL IVP SCH (09:30)
--- NOTE | 2023-02-20 09:38 | P.PN ---
Subjective Progress Note Date: 02/20/23 History of present illness: 52-year-old female patient who follows with Dr. Loredo in the office. She has a history of hypertension and was hospitalized in June with evidence of congestive heart failure with preserved LV systolic function. At that time she underwent echocardiogram which showed a normal ejection fraction with mild MR mild TR and subsequently underwent a stress echocardiogram in the office that showed normal EF with no evidence of ischemia. She presented this admission with complaints of chest discomfort. She has been getting chest discomfort when she lays down at night. Prior to admission she developed some significant chest discomfort and shortness of breath after eating some serbian fries and she felt as if they were stuck. She also has some chest tenderness to palpation. Positive and negative 3 there's been no evidence of ischemia on EKG. Vital signs have been stable. Since June she has been trying to increase her activity. She bowls a few times a week and walks her dog regularly. She has no exertional symptoms. Her breathing has been stable. She has no edema. She uses her Lasix only occasionally on weekends. She has been maintaining a low sodium diet and is cut out soda from her diet. She's had no palpitations, dizziness or lightheadedness. 02/20 Patient is seen in follow-up. She says she still has some chest discomfort. She is scheduled for an EGD today with Dr. Haider. Physical examination: This is a 52-year-old female in no apparent distress at the time of my examination. HEENT: Head is atraumatic, normocephalic. Pupils are equal, round. Sclerae anicteric. Conjunctivae are clear. Mucous membranes of the mouth are moist. Neck is supple. There is no elevated jugular venous pressure. No carotid bruit is heard. CHEST EXAMINATION: Clear to auscultation bilaterally. No wheezes rales or rhonchi. Respirations even and nonlabored. Chest wall tenderness to palpation HEART EXAMINATION: Heart regular, positive S1 and S2. No S3. No S4. No clicks, rubs or murmurs. ABDOMEN: Soft, obese, nontender. Bowel sounds are heard. No organomegaly noted. EXTREMITIES: 2+ peripheral pulses with no evidence of peripheral edema and no calf tenderness noted. NEUROLOGIC EXAMINATION: Patient is awake, alert and oriented x3. Assessment: #1 chest pain, an acute coronary event has been ruled out, troponins of been negative 3, patient had normal stress echocardiogram in July 2022, symptoms appear to be GI in origin as well as a component of musculoskeletal discomfort #2 hypertension #3 history of CHF with preserved systolic function, patient appears to be euvolemic with no evidence of acute CHF at this time Plan: Patient is scheduled for EGD today with Dr. Haider. From cardiology perspective, patient is cleared for discharge and may follow up in the office with Dr. Loredo as previously scheduled. Thank you kindly for this consultation. Nurse practitioner note has been reviewed, I agree with documented findings and plan of care. Patient was seen and examined. Objective - Vital Signs Vital signs: Vital Signs Temp 97.9 F 02/20/23 02:06 Pulse 62 02/20/23 02:06 Resp 17 02/20/23 02:06 BP 106/66 02/20/23 02:06 Pulse Ox 97 02/20/23 02:06 FiO2 Intake & Output 02/19/23 02/20/23 02/20/23 18:59 06:59 18:59 Intake Total 358 Balance 358 Intake: Oral 358 Other: Voiding Method Toilet Toilet # Voids 3 2 - Labs CBC & Chem 7: 02/20/23 05:28 02/20/23 05:28 Labs: Abnormal Lab Results - Last 24 Hours (Table) 02/18/23 02/20/23 Range/Units 14:14 05:28 BUN 24 H (7-17) mg/dL Creatinine 1.07 H (0.52-1.04) mg/dL Triglycerides 179.00 H (0.00-149.00) mg/dL Cholesterol 235.00 H (0.00-200.00) mg/dL LDL Cholesterol, Calc 138.1 H (0.0-131.0) mg/dL HDL Cholesterol 61.10 H (40.00-60.00) mg/dL
[2023-02-20] MEDS ORDERED: PROPOFOL 10 MG/ML 20 ML VIAL IV ONE (09:53)
[2023-02-20] MEDS ORDERED: IV FLUID CONTINUATION 1,000 ML IV ONE (09:58)
--- NOTE | 2023-02-20 10:15 | P.PCN ---
Date of Procedure: 02/20/23 Procedure(s) Performed: Preoperative Dx: Dysphagia, GERD, epigastric pain Postoperative Dx: Mild gastritis Procedure: EGD with Bx Anesthesia: Sedation Endoscopist: Dr. Haider Specimens: Antrum Endoscopic Procedure: The patient was on the endoscopy table in the left decubitus position. The Olympus gastroscope was inserted into the oropharynx and passed under direct visualization to the region of the third portion of the duodenum. From that point the scope was slowly withdrawn inspecting all surfaces carefully. There were no neoplastic inflammatory or polypoid lesions throughout the duodenum. The pylorus was widely patent. The stomach was carefully inspected. There was mild gastritis present. A biopsy of the antrum took place to rule out H. pylori. Retroflexion revealed a normal hiatus. The esophagus was then carefully examined. There were no neoplastic inflammatory or polypoid lesions throughout the visualized esophagus. No abnormalities to explain the patient's complaints of dysphagia are noted. The patient was then taken to the recovery room in stable condition per anesthesia guidelines. Recommendations: Await biopsy result. Resume diet. Continue antiacids. If symptoms of dysphagia persist advise modified barium swallow.
--- NOTE | 2023-02-20 12:48 | P.PN ---
Subjective This is a pleasant 52 years old female with past medical history of heart failure, hypertension, osteoarthritis.she is a patient of Dr. Plaza Patient presents because of chest pain she, she has this chest pain on and off for about one week but over the last 150s came more constant, it is central radiating across the chest felt like someone sitting on her chest although earlier it looks like heartburn. Associated with little dyspnea. No coughing. No change in urine or bowel habits. No hepatic weakness numbness Patient denies smoking alcohol or illicit tracts Heart transplant in the low side but rest of vitals are stable Patient was unremarkable labs including CBC INR, BMP and liver enzymes. Troponin 2 are negative. ProBNP is 321 D-dimer -0.37 EKG shows sinus bradycardia at [address] changes Chest x-ray: Mild cardiomegaly without acute pulmonary process 02/19/2023 Patient has been resolved, could be musculoskeletal related to GI. Cardiogenic cleared the patient After the patient and she is agreeable for possible EGD tomorrow by surgery team as patient has epigastric pain and tenderness although she reported it is 2/10 in severity but that affects her eating habits. Continue with IV Protonix 02/20/2023 I saw the patient prior for going to EGD this morning, she was comfortable pleasant and relaxed. She was mildly dehydrated because she was nothing by mouth overnight and she was started on normal saline 75 mL/h. EGD results today showed mild gastritis and biopsy was taken. Earlier patient was also reported some choking with workup which was been going on for the last 4 weeks now and then. No overt aspiration. Breathing is stable and lungs are clear on exam. She is saturating well with no respiratory symptoms. Vital signs stable Cardiology team already for the patient for discharge. Objective - Vital Signs Vital signs: Vital Signs Temp 97.7 F 02/20/23 07:40 Pulse 57 L 02/20/23 07:40 Resp 16 02/20/23 07:40 BP 101/66 02/20/23 07:40 Pulse Ox 97 02/20/23 07:40 FiO2 Intake & Output 02/19/23 02/20/23 02/20/23 18:59 06:59 18:59 Intake Total 358 50 Balance 358 50 Intake: IV 50 Oral 358 Other: Voiding Method Toilet Toilet # Voids 3 2 - Exam -GENERAL: The patient is alert and oriented x3, not in any acute distress. Well morbidly obese HEENT: Pupils are round and equally reacting to light. EOMI. No scleral icterus. No conjunctival pallor. Normocephalic, atraumatic. No pharyngeal erythema. No thyromegaly. CARDIOVASCULAR: S1 and S2 present. No murmurs, rubs, or gallops. PULMONARY: Chest is clear to auscultation, no wheezing or crackles. -ABDOMEN: Soft, epigastric tenderness, nondistended, normoactive bowel sounds. No palpable organomegaly. MUSCULOSKELETAL: No joint swelling or deformity. EXTREMITIES: No cyanosis, clubbing, or pedal edema. NEUROLOGICAL: Gross neurological examination did not reveal any focal deficits. SKIN: No rashes. no petechiae. - Labs CBC & Chem 7: 02/20/23 05:28 02/20/23 05:28 Labs: Abnormal Lab Results - Last 24 Hours (Table) 02/20/23 Range/Units 05:28 BUN 24 H (7-17) mg/dL Creatinine 1.07 H (0.52-1.04) mg/dL Assessment and Plan Assessment: Chest pain, could be musculoskeletal or related to GI , EGD showed mild g astritis Epigastric pain and tenderness Some swallowing difficulty with drinking water Hypertension. Hyperlipidemia Obesity with BMI 58.2 History of osteoarthritis Plan: Analytical Chemistry Teacher and cleared the patient Consult surgery team on the case Swallow evaluation Protonix IV Labs and medication were reviewed.. Continue same treatment. Continue with symptomatic treatment. Resume home medication. Monitor labs and vitals. DVT and GI prophylaxis. Further recommendations as per clinical course of the patient DVT prophylaxis: Subcutaneous heparin GI Prophylaxis: Ppi Prognosis is guarded
[2023-02-20 15:57] VITALS: PULSE 77
[2023-02-20 16:40] VITALS: BP 121/75; TEMP 98.2
--- NOTE | 2023-02-21 00:31 | P.DS ---
Providers Date of admission: 02/18/23 15:48 Attending physician: Willard Farris MD Consults: 02/18/23 15:41 Consult Physician Urgent Consulting Provider: Debra Urrutia Consult Reason/Comments: chest pain Do you want consulting provider notified?: Yes 02/19/23 14:30 Consult Physician Routine Consulting Provider: Anjum Haider Reason/Comments: epigastric tenderness Do you want consulting provider notified?: Already Contacted Primary care physician: Mela Rodriguez Hospital Course: Diagnoses: Chest pain, could be musculoskeletal or related to GI , EGD showed mild gastritis Epigastric pain and tenderness, resolved Some swallowing difficulty with drinking water, patient past swallow evaluation, instructed to follow up with GI services an outpatient History of cholecystectomy Hypertension. Hyperlipidemia Obesity with BMI 58.2 History of osteoarthritis Hospital course: This is a pleasant 52 years old female with past medical history of heart failure, hypertension, osteoarthritis.she is a patient of Dr. Plaza Patient presents because of chest pain she, patient evaluated by polymer materials consultant who cleared her and recommended GI evaluation. Patient was cleared from some tenderness in the epigastric associated with eating, therefore surgery team was consulted (no GI services available at this facility during this week) and she will underwent EGD showed only mild gastritis and biopsy was taken (please refer to report for more details) this point patient was feeling better, was at bedside, both patient and want her to be discharged today and follow- up as an outpatient which looks reasonable as her symptoms significantly controlled and patient tolerates diet well. On the day of discharge patient denies any new symptom. Patient was cleared for discharge by both cardiology and surgery team (signed off) Problems and management plan were discussed with the patient and he verbalized understanding and acceptance Patient was found stable and can be discharged home in guarded prognosis however he needs follow-up as an outpatient. Patient was instructed to follow up with PCP Dr. Plaza within one week and patient agrees Patient was instructed to follow up with her polymer materials consultant Dr. Urrutia in 1-2 weeks and she agrees Patient was instructed to follow up with mandate retail service merchandiser Dr. Pratt and she agrees as well. Patient was instructed to follow-up with the surgeon Dr. Haider N2 weeks after discharge and she agrees Physical exam -Gen: patient is a AAOx3, no distress. Obese CVS: S1-S2, RRR, no murmur Lungs: B/L CTA, no wheezing Abdomen: soft, no distention, no tenderness, positive bowel sounds Extremity: no leg edema or induration Time spent more than 35 minutes Patient Condition at Discharge: Fair Plan - Discharge Summary Discharge Rx Participant: No New Discharge Prescriptions: New Omeprazole [PriLOSEC] 20 mg PO AC-BRKFST #30 cap Continue atenoloL [Tenormin] 25 mg PO BID FLUoxetine HCL [PROzac] 40 mg PO DAILY Multivitamin [Multivitamins Adult Gummies] 1 tab PO DAILY Furosemide [Lasix] 20 mg PO DAILY PRN PRN Reason: Edema Ergocalciferol (Vitamin D2) [Drisdol (50,000 Iu)] 1,250 mcg PO TH Discharge Medication List FLUoxetine HCL [PROzac] 40 mg PO DAILY 03/05/22 [History] atenoloL [Tenormin] 25 mg PO BID 03/05/22 [History] Ergocalciferol (Vitamin D2) [Drisdol (50,000 Iu)] 1,250 mcg PO TH 02/18/23 [History] Furosemide [Lasix] 20 mg PO DAILY PRN 02/18/23 [History] Multivitamin [Multivitamins Adult Gummies] 1 tab PO DAILY 02/18/23 [History] Omeprazole [PriLOSEC] 20 mg PO AC-BRKFST #30 cap 02/20/23 [Rx] Follow up Appointment(s)/Referral(s): Anjum Haider MD [Medical Doctor] - 1 Week Debra Urrutia MD [STAFF PHYSICIAN] - 03/03/23 4:15 pm Michael Plaza MD [Primary Care Provider] - 1-2 days Libertad Pratt MD [STAFF PHYSICIAN] - 1 Week Activity/Diet/Wound Care/Special Instructions: heart healthy diet activity is restricted till you see your doctor we recommend to check your blood pressure in 1-2 day, stop taking atenolol if you feel dizzy or lightheaded , sweaty , nervous and contact your doctor right away and call 911 and come to emergency room Discharge Disposition: HOME SELF-CARE
== END 2023-02-20 17:02 | disposition home or self-care (01) ==
LOC: EC 13:39 → 6NMEDSUR 15:48 → INTOOBSV 02-20 05:45 → OBSVTOIN 02-20 05:45
PROVIDERS: ADMIT Internal Medicine; ATTEND Internal Medicine
DX: K29.50 Unspecified chronic gastritis without bleeding (principal); Z68.43 Body mass index [BMI] 50.0-59.9, adult; R13.10 Dysphagia, unspecified; I11.0 Hypertensive heart disease with heart failure; I50.9 Heart failure, unspecified; F41.9 Anxiety disorder, unspecified; E78.5 Hyperlipidemia, unspecified; E66.9 Obesity, unspecified; Z85.828 Personal history of other malignant neoplasm of skin; Z79.899 Other long term (current) drug therapy
CPT/HCPCS: 96372; 96374; 96375; 99285; 36415; 93005; 92610; 85379; 88305; 83880; 80061; 80053; 80048; 83735; 84484; 85025; 85027; 85610; 85730; 71046; 43239; G0378 ×3; J2704; C9113; J1644

== ENCOUNTER → 2023-03-24 | Outpatient (CLI) | payer BC ==
[2023-03-24 21:27] LABS: Gliadin AB IgA, Deaminated Negative; Gliadin AB IgA, Unit <0.5 U/mL; Gliadin AB IgG, Deaminated Negative; Gliadin AB IgG, Unit <0.4 U/mL
== END | disposition home or self-care (01) ==
LOC: LABWHC1 10:23
PROVIDERS: ATTEND Internal Medicine Gastroenterology
DX: K52.9 Noninfective gastroenteritis and colitis, unspecified (principal)
CPT/HCPCS: 36415; 83516; 85652; 86140

== ENCOUNTER → 2023-04-03 | Outpatient (CLI) | payer BC ==
--- NOTE | 2023-04-03 15:52 | FL ---
EXAMINATION TYPE: FL barium swallow DATE OF EXAM: 04/03/2023 COMPARISON: None HISTORY: Dysphasia couple months TECHNIQUE: Double air contrast technique is utilized to evaluate the esophagus. FINDINGS: Esophagus diagnosed in caliber and has normal contour to the gastroesophageal junction. Gas troesophageal junction opens to normal caliber. No intraluminal or extramural defect evident. A few tertiary contractions are evident during the examination. A secondary contraction is identified . Correlate for mild presbyesophagus. There is complete stripping esophageal folds in the horizontal drinking position. No reflux was evide nt. IMPRESSION: 1. Mild presbyesophagus.
== END | disposition home or self-care (01) ==
LOC: RADUSWWP 09:54
PROVIDERS: ATTEND Internal Medicine Gastroenterology
DX: K22.89 Other specified disease of esophagus (principal); R13.10 Dysphagia, unspecified
CPT/HCPCS: 74220

== ENCOUNTER → 2023-04-14 | Outpatient (CLI) | payer BC ==
--- NOTE | 2023-04-14 14:43 | US ---
EXAMINATION TYPE: US kidneys/renal and bladder DATE OF EXAM: 04/14/2023 COMPARISON: NONE CLINICAL INDICATION: Female, 52 years old with history of R10.9 FLANK PAIN,N39.0 FREQ URINATION; left flank pain, frequent urination EXAM MEASUREMENTS: Right Kidney: 10.3 x 4.8 x 4.4 cm Left Kidney: 11.8 x 5.1 x 4.9 cm *limitations due to patient's body habitus and large amount of overlying bowel content Right Kidney: no evidence of hydronephrosis Left Kidney: no evidence of hydronephrosis Bladder: appears wnl Bilateral Jets seen: yes There is no evidence for hydronephrosis at this point in time. No nephrolithiasis is seen. No lexi s are identified. The urinary bladder is anechoic. Bilateral ureteral jets are seen. IMPRESSION: No evidence of obstructive uropathy.
== END | disposition home or self-care (01) ==
LOC: RADUSWWP 13:36
PROVIDERS: ATTEND Internal Medicine
DX: N39.0 Urinary tract infection, site not specified (principal); R10.9 Unspecified abdominal pain
CPT/HCPCS: 76770

== ENCOUNTER 2023-04-24 11:08 | Day surgery (SDC) | payer BC ==
[2023-04-20 11:24] VITALS: BMI 58.1
[2023-04-24] MEDS ORDERED: LACTATED RINGERS 1,000 ML IV ONE ×2 (11:24)
[2023-04-24 11:48] VITALS: RESP 16; TEMP 97.8
[2023-04-24] MEDS ORDERED: LACTATED RINGERS 1,000 ML IV SCH (11:49)
[2023-04-24] MEDS ORDERED: PROPOFOL 10 MG/ML 20 ML VIAL IV ONE (12:31)
--- NOTE | 2023-04-24 12:46 | P.PCN ---
Date of Procedure: 04/24/23 Procedure(s) Performed: BRIEF HISTORY: Patient is a 52-year-old pleasant at female scheduled for an elective colonoscopy as a part of chronic diarrhea for the last 3-4 years duration. She has 3-4 loose watery bowel movements daily with no blood or mucus in the stool. She does have family history of colon cancer diagnosed in her mother at age 64. PROCEDURE PERFORMED: Colonoscopy with biopsy. PREOPERATIVE DIAGNOSIS: Any diarrhea and family history of colon cancer. IV sedation per Anesthesia. PROCEDURE: After informed consent was obtained, the patient, was brought into the endoscopy unit. IV sedation was administered by Anesthesia under continuous monitoring. Digital rectal examination was normal. Initially the Olympus CF-160 flexible video colonoscope was then inserted in the rectum, gradually advanced into the cecum without any difficulty. Careful examination was performed as the scope was gradually being withdrawn. Ileocecal valve and the appendiceal orifice were visualized and appeared normal. Prep was excellent. Mucosa of the cecum, appeared normal. The ascending colon there was a 3 mm polyp that was removed by cold biopsy. ascending colon, transverse colon, descending colon, sigmoid colon, and rectum appeared normal. Random biopsies were done from ascending and descending colon to rule out microscopic/collagenous colitis. Scattered sigmoid diverticulosis seen. Retroflexion was performed in the rectum and no lesions were seen. The patient tolerated the procedure well. IMPRESSION: 3 mm ascending colon polyp status post cold biopsy Scattered sigmoid diverticulosis RECOMMENDATIONS: Findings of this examination were discussed with the patient as well as a family. She was advised to follow with the biopsy results. Recommend repeat screening colonoscopy in 5 years because of the family history of colon cancer. Follow up in office in 2 weeks.
[2023-04-24 12:51] VITALS: PULSE 56
[2023-04-24 13:08] VITALS: BP 108/74
== END 2023-04-24 13:31 | disposition home or self-care (01) ==
LOC: ORWHC2ENDO 11:08
PROVIDERS: ATTEND Internal Medicine Gastroenterology
DX: D12.2 Benign neoplasm of ascending colon (principal); K52.9 Noninfective gastroenteritis and colitis, unspecified; Z80.0 Family history of malignant neoplasm of digestive organs; K57.30 Diverticulosis of large intestine without perforation or abscess without bleeding; I11.0 Hypertensive heart disease with heart failure; I50.9 Heart failure, unspecified; F41.9 Anxiety disorder, unspecified; E66.01 Morbid (severe) obesity due to excess calories; Z68.43 Body mass index [BMI] 50.0-59.9, adult; Z79.899 Other long term (current) drug therapy
CPT/HCPCS: 88305; 45380; J2704

== ENCOUNTER 2023-10-29 12:58 | Emergency (ER) | payer OTHER, BC ==
[2023-10-29 13:27] VITALS: RESP 16
--- NOTE | 2023-10-29 14:44 | XR ---
EXAMINATION TYPE: XR knee complete RT DATE OF EXAM: 10/29/2023 COMPARISON: NONE HISTORY: 53-year-old female with pain TECHNIQUE: 3 views FINDINGS: Tricompartmental degenerative spurring. [id number] narrowing of cartilage and joint s pace in the medial compartment. No significant joint effusion. Extensor mechanism appears intact. No acute fracture, subluxation, dislocation. IMPRESSION: Tricompartmental osteoarthrosis, probably moderate in the medial compartment. No acute osseous abnorm ality seen. Consider MRI if symptoms persist.
--- NOTE | 2023-10-29 15:52 | ED ---
Lower Extremity Injury HPI - General Source: patient, RN notes reviewed Mode of arrival: ambulatory Limitations: no limitations <Navdeep Song - Last Filed: 10/29/23 15:50> - General Source: RN notes reviewed, old records reviewed Mode of arrival: ambulatory Limitations: no limitations - History of Present Illness MD Complaint: knee injury -: hour(s) Injury: Knee: Right Type of Injury: inversion, eversion, hyperextension, hyperflexion Place: work Severity: moderate Severity scale (1-10): 6 Worsens With: weight bearing Associated Symptoms: snap/pop sensation, swelling Treatments Prior to Arrival: other (0) <Vlad Russell - Last Filed: 11/09/23 15:34> - General Chief Complaint: Extremity Injury, Lower Stated Complaint: Rt knee pain Time Seen by Provider: 10/29/23 13:59 - History of Present Illness Initial Comments: 53-year-old female presents emergency Department chief complaint of right leg pain. Patient states she knows she has a bad right knee states that she has [id number] as she's been told the past. 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 Patient denies any redness denies any history DVT. (Navdeep Song) This is a 53 female to the emergency department for evaluation knee pain significant right knee pain which has been an issue for her in the past. Patient felt the knee popping sound feeling prior to arrival with significant swelling, she is able to bear weight but is concern for significant ligament injury versus other cause of pain (Vlad Russell) - Related Data Home Medications Medication Instructions Recorded Confirmed FLUoxetine HCL [PROzac] 40 mg PO HS 03/05/22 04/24/23 atenoloL [Tenormin] 25 mg PO BID 03/05/22 04/24/23 Ergocalciferol (Vitamin D2) 1,250 mcg PO TH 02/18/23 04/24/23 [Drisdol (50,000 Iu)] Furosemide [Lasix] 20 mg PO DAILY PRN 02/18/23 04/24/23 Dicyclomine HCl 20 mg PO QID PRN 04/20/23 04/24/23 Allergies Allergy/AdvReac Type Severity Reaction Status Date / Time No Known Allergies Allergy Verified 04/24/23 11:49 Review of Systems ROS Other: All systems not noted in ROS Statement are negative. <Navdeep Song - Last Filed: 10/29/23 15:50> ROS Other: All systems not noted in ROS Statement are negative. <DrewVlad B - Last Filed: 11/09/23 15:34> ROS Statement: Those systems with pertinent positive or pertinent negative responses have been documented in the HPI. Past Medical History Past Medical History: Hyperlipidemia, Hypertension Additional Past Medical History / Comment(s): skin cancer on face, Obese, cardiomyopathy History of Any Multi-Drug Resistant Organisms: None Reported Past Surgical History: Adenoidectomy, Section, Cholecystectomy, Hysterectomy, Orthopedic Surgery, Tonsillectomy Additional Past Surgical History / Comment(s): RT KNEE ARTHROSCOPY X3, Moh's procedure Past Anesthesia/Blood Transfusion Reactions: No Reported Reaction Past Psychological History: Anxiety Smoking Status: Never smoker - Past Family History Mother Family Medical History: Cancer Additional Family Medical History / Comment(s): COLON <Navdeep Song - Last Filed: 10/29/23 15:50> General Exam Limitations: no limitations General appearance: alert, in no apparent distress Head exam: Present: atraumatic, normocephalic, normal inspection Neck exam: Present: normal inspection. Absent: tenderness, meningismus, lymphadenopathy Respiratory exam: Present: normal lung sounds bilaterally. Absent: respiratory distress, wheezes, rales, rhonchi, stridor Cardiovascular Exam: Present: regular rate, normal rhythm, normal heart sounds. Absent: systolic murmur, diastolic murmur, rubs, gallop, clicks Extremities exam: Present: other (Right knee posterior aspect there is some tenderness palpation, pain with range of motion neurovascular intact) Skin exam: Present: warm, dry, intact, normal color. Absent: rash <Navdeep Song - Last Filed: 10/29/23 15:50> General appearance: alert, in no apparent distress Head exam: Present: atraumatic, normocephalic, normal inspection Eye exam: Present: normal appearance, PERRL, EOMI. Absent: scleral icterus, conjunctival injection, periorbital swelling ENT exam: Present: normal exam, mucous membranes moist Neck exam: Present: normal inspection. Absent: tenderness, meningismus, lymphadenopathy Respiratory exam: Present: normal lung sounds bilaterally. Absent: respiratory distress, wheezes, rales, rhonchi, stridor Cardiovascular Exam: Present: regular rate, normal rhythm, normal heart sounds. Absent: systolic murmur, diastolic murmur, rubs, gallop, clicks GI/Abdominal exam: Present: soft, normal bowel sounds. Absent: distended, tenderness, guarding, rebound, rigid Extremities exam: Present: normal inspection, full ROM, normal capillary refill. Absent: tenderness, pedal edema, joint swelling, calf tenderness Back exam: Present: normal inspection Neurological exam: Present: alert, oriented X3, CN II-XII intact Psychiatric exam: Present: normal affect, normal mood Skin exam: Present: warm, dry, intact, normal color. Absent: rash <Vlad Russell - Last Filed: 11/09/23 15:34> Course <Vlad Russell - Last Filed: 11/09/23 15:34> Vital Signs 10/29/23 10/29/23 13:03 16:35 Temperature 98.9 F 98.7 F Pulse Rate 63 65 Respiratory 16 16 Rate Blood Pressure 126/59 122/84 O2 Sat by Pulse 98 98 Oximetry - Reevaluation(s) Reevaluation #1: Medical records reviewed (Vlad Russell) Reevaluation #2: Patient symptoms improved (Vlad Russell) Reevaluation #3: Patient informed results questions answered (Vlad Russell) Reevaluation #4: Was pt. sent in by a medical professional or institution (, PA, ENTERPRISE ACCOUNT EXECUTIVE, urgent care, hospital, or fpc...) When possible be specific @ -no Did you speak to anyone other than the patient for history (EMS, parent, family, police, friend...)? What history was obtained from this source @ -no Did you review nursing and triage notes (agree or disagree)? Why? @ -agree Are old charts reviewed (outside hosp., previous admission, EMS record, old EKG, old radiological studies, urgent care reports/EKG's, fpc records)? Report findings @ -yes Differential Diagnosis (chest pain, altered mental status, abdominal pain women, abdominal pain men, vaginal bleeding, weakness, fever, dyspnea, syncope, headache, dizziness, GI bleed, back pain, seizure, CVA, palpatations, mental health, musculoskeletal)? @ -prior EKG interpreted by me (3pts min.). @ -no X-rays interpreted by me (1pt min.). @ -yes negative for acute disease CT interpreted by me (1pt min.). @ -no U/S interpreted by me (1pt. min.). @ -yes negative for acute disease What testing was considered but not performed or refused? (CT, X-rays, U/S, labs)? Why? @ -none What meds were considered but not given or refused? Why? @ -none Did you discuss the management of the patient with other professionals ( professionals i.e. , PA, ENTERPRISE ACCOUNT EXECUTIVE, lab, RT, psych nurse, social media manager, criminal lawyer, teacher, commercial loan officer, vocational case manager)? Give summary @ -no Was smoking cessation discussed for >3mins.? @ -no Were there social determinants of health that impacted care today? How? (Homelessness, low income, unemployed, alcoholism, drug addiction, transportation, low edu. Level, literacy, decrease access to med. care, penitentiary, rehab)? @ -none Was there de-escalation of care discussed even if they declined (Discuss DNR or withdrawal of care, Hospice)? DNR status @ -no What co-morbidities impacted this encounter? (DM, HTN, Smoking, COPD, CAD, Cancer, CVA, ARF, Chemo, Hep., AIDS, mental health diagnosis, sleep apnea, morbid obesity)? @ -none Was patient admitted / discharged? Hospital course, mention meds given and route, prescriptions, significant lab abnormalities, going to OR and other pertinent info. @ - 53 female to the emergency department for evaluation of knee pain right knee pain and swelling. Negative testing here in the emergency department is without significant pain she is able to bear weight she can be discharged home Discharge Was critical care preformed (if so, how long)? @ -no Undiagnosed new problem with uncertain prognosis? @ -no Drug Therapy requiring intensive monitoring for toxicity (Heparin, Nitro, Insulin, Cardizem)? @ -no Were any procedures done? @ -no Diagnosis/symptom? @ -Right knee pain Acute, or Chronic, or Acute on Chronic? @ -Acute Uncomplicated (without systemic symptoms) or Complicated (systemic symptoms)? @ -Complicated Side effects of treatment? @ -no Exacerbation, Progression, or Severe Exacerbation? @ -exacerbation Poses a threat to life or bodily function? How? (Chest pain, [place], [place], pneumonia, PE, COPD, DKA, ARF, appy, cholecystitis, CVA, Diverticulitis, Homicidal, Suicidal, threat to staff... and all critical care pts) @ -yes with DVT leading to PE (Vlad Russell) Medical Decision Making - Radiology Data Radiology results: report reviewed (X-ray of the kneeAs well as ultrasound of the knee is negative for acute disease), image reviewed <Vlad Russell - Last Filed: 11/09/23 15:34> - Medical Decision Making 53 female to the emergency department for evaluation of knee pain right knee pain and swelling. Negative testing here in the emergency department is without significant pain she is able to bear weight she can be discharged home (Vlad Russell) Disposition <Navdeep Song - Last Filed: 10/29/23 15:50> Is patient prescribed a controlled substance at d/c from ED?: No Time of Disposition: 16:00 <Vlad Russell - Last Filed: 11/09/23 15:34> Clinical Impression: Right leg pain, Right knee pain Disposition: HOME SELF-CARE Condition: Good Instructions (If sedation given, give patient instructions): Knee Pain (ED) Referrals: Mansoor Dunn MD [Primary Care Provider] - 1-2 days
--- NOTE | 2023-10-29 16:05 | US ---
EXAMINATION TYPE: US venous doppler duplex LE RT DATE OF EXAM: 10/29/2023 3:49 PM COMPARISON: 07/08/2022 CLINICAL INDICATION: Female, 53 years old with history of pain; Patient felt pop in right knee this a m; no pain or swelling SIDE PERFORMED: Right TECHNIQUE: The lower extremity deep venous system is examined utilizing real time linear array sonog codey with graded compression, doppler sonography and color-flow sonography. VESSELS IMAGED: Common Femoral Vein Deep Femoral Vein Greater Saphenous Vein * Femoral Vein Popliteal Vein Small Saphenous Vein * Proximal Calf Veins (* superficial vessels) Limited exam due to patients body habitus; Bakers cyst right pop Right Leg: Negative for DVT Left Leg: NA IMPRESSION: 1. Right lower extremity ultrasound negative for deep venous thrombosis. 2. Right popliteal cyst present
[2023-10-29 16:37] VITALS: BP 122/84; PULSE 65; TEMP 98.7
== END 2023-10-29 16:46 | disposition home or self-care (01) ==
LOC: EC 12:58
DX: M25.561 Pain in right knee (principal); I10 Essential (primary) hypertension; F41.9 Anxiety disorder, unspecified; Z79.899 Other long term (current) drug therapy
CPT/HCPCS: 99284

== ENCOUNTER → 2023-12-17 | Outpatient (CLI) | payer BC ==
--- NOTE | 2023-12-17 13:55 | XR ---
EXAMINATION TYPE: XR cervical spine w flex/ext DATE OF EXAM: 12/17/2023 1:35 PM CLINICAL INDICATION:Female, 53 years old with history of R20.0 ANESTHESIA OF SKIN; [facility] COMPARISON: 04/03/2023 TECHNIQUE: The cervical spine was imaged in frontal, lateral, odontoid and bilateral oblique. FINDINGS: The osseous structures show normal alignment without evidence of an acute fracture. There are osteoph ytes noted throughout the cervical spine on the anterior and lateral aspects of the vertebral bodies. The intervertebral disk spaces are narrowed at multiple levels. Pedicles are intact. Soft tissues a re within normal limits. The odontoid appears intact. IMPRESSION: 1. No fracture or dislocation. 2. Mild degenerative disc disease changes of the cervical spine.
== END | disposition home or self-care (01) ==
LOC: RADXRMAIN 12:56
PROVIDERS: ATTEND Family Medicine
DX: M50.30 Other cervical disc degeneration, unspecified cervical region (principal); R20.0 Anesthesia of skin
CPT/HCPCS: 72052

== ENCOUNTER 2024-04-25 11:31 | Emergency (ER) | payer BC ==
--- NOTE | 2024-04-25 12:27 | ED ---
Recheck HPI - General Chief Complaint: Headache Stated Complaint: post op comp Time Seen by Provider: 04/25/24 11:51 Source: patient, RN notes reviewed, old records reviewed Mode of arrival: ambulatory Limitations: no limitations - History of Present Illness Initial Comments: This is a 53 male to the ED for evaluation of severe headache and sinus pain. Patient has severe headache in the emergency department concern for sinus infection patient recently did have an epidural injection MD Complaint: other (recheck IKRK) -: days(s) Returns Today for: persistent/worsening pain related to initial visit Symptoms Since Prior Visit: no new symptoms, worsening pain Context: planned re-check Associated Symptoms: none Treatments Prior to Arrival: other (0) - Related Data Home Medications Medication Instructions Recorded Confirmed FLUoxetine HCL [PROzac] 40 mg PO HS 03/05/22 04/24/23 atenoloL [Tenormin] 25 mg PO BID 03/05/22 04/24/23 Ergocalciferol (Vitamin D2) 1,250 mcg PO TH 02/18/23 04/24/23 [Drisdol (50,000 Iu)] Furosemide [Lasix] 20 mg PO DAILY PRN 02/18/23 04/24/23 Dicyclomine HCl 20 mg PO QID PRN 04/20/23 04/24/23 Allergies Allergy/AdvReac Type Severity Reaction Status Date / Time No Known Allergies Allergy Verified 04/24/23 11:49 Review of Systems ROS Statement: Those systems with pertinent positive or pertinent negative responses have been documented in the HPI. ROS Other: All systems not noted in ROS Statement are negative. Past Medical History Past Medical History: Heart Failure, Hyperlipidemia, Hypertension Additional Past Medical History / Comment(s): skin cancer on face, Obese, cardiomyopathy History of Any Multi-Drug Resistant Organisms: None Reported Past Surgical History: Adenoidectomy, Section, Cholecystectomy, Hysterectomy, Orthopedic Surgery, Tonsillectomy Additional Past Surgical History / Comment(s): RT KNEE ARTHROSCOPY X3, Moh's procedure Past Anesthesia/Blood Transfusion Reactions: No Reported Reaction Past Psychological History: Anxiety Smoking Status: Never smoker - Past Family History Mother Family Medical History: Cancer Additional Family Medical History / Comment(s): COLON General Exam Limitations: no limitations General appearance: alert, in no apparent distress Head exam: Present: atraumatic, normocephalic, normal inspection Eye exam: Present: normal appearance, PERRL, EOMI. Absent: scleral icterus, conjunctival injection, periorbital swelling ENT exam: Present: normal exam, mucous membranes moist Neck exam: Present: normal inspection. Absent: tenderness, meningismus, lymphadenopathy Respiratory exam: Present: normal lung sounds bilaterally. Absent: respiratory distress, wheezes, rales, rhonchi, stridor Cardiovascular Exam: Present: regular rate, normal rhythm, normal heart sounds. Absent: systolic murmur, diastolic murmur, rubs, gallop, clicks GI/Abdominal exam: Present: soft, normal bowel sounds. Absent: distended, tenderness, guarding, rebound, rigid Extremities exam: Present: normal inspection, full ROM, normal capillary refill. Absent: tenderness, pedal edema, joint swelling, calf tenderness Back exam: Present: normal inspection Neurological exam: Present: alert, oriented X3, CN II-XII intact Psychiatric exam: Present: normal affect, normal mood Skin exam: Present: warm, dry, intact, normal color. Absent: rash Course Vital Signs 04/25/24 04/25/24 11:45 13:16 Temperature 97.9 F 98.1 F Pulse Rate 60 68 Respiratory 16 18 Rate Blood Pressure 154/82 115/81 O2 Sat by Pulse 96 97 Oximetry - Reevaluation(s) Reevaluation #1: Medical records reviewed Reevaluation #2: Patient symptoms improved Reevaluation #3: Patient informed of results questions answered Reevaluation #5: Differential Headache: Migraine, tension, cluster, carbon monoxide, central venous thrombosis, pension karma temporal arteritis, acute closure glaucoma, intercranial hemorrhage, mastoiditis, sinusitis, head injury, this is not meant to be an all-inclusive list. Medical Decision Making - Medical Decision Making 53 female to ER for evaluation of headache acute on chronic headache with recent epidural injection. Patient symptoms are improved here in the ER feels well patient can be discharged home Disposition Clinical Impression: Headache, Sinusitis Disposition: HOME SELF-CARE Condition: Fair Instructions (If sedation given, give patient instructions): Acute Headache (ED) Is patient prescribed a controlled substance at d/c from ED?: No Referrals: Mansoor Dunn MD [Primary Care Provider] - 1-2 days Time of Disposition: 13:00
[2024-04-25 13:17] VITALS: BP 115/81; PULSE 68; RESP 18; TEMP 98.1
== END 2024-04-25 13:45 | disposition home or self-care (01) ==
LOC: EC 11:31
DX: J32.9 Chronic sinusitis, unspecified (principal); Z90.49 Acquired absence of other specified parts of digestive tract
CPT/HCPCS: 99283

== ENCOUNTER 2024-07-01 13:02 | Emergency (ER) | payer OTHER, BC ==
--- NOTE | 2024-07-01 13:19 | ED ---
Upper Extremity HPI - General Stated Complaint: IHS-R hand injury Time Seen by Provider: 07/01/24 13:19 Source: patient, RN notes reviewed - History of Present Illness Initial Comments: 54-year-old female presents emergency department chief complaint of right thumb pain. 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 Patient denies falling, hitting her head or loss conscious at the time of this event. Patient has full range of motion of the right thumb and denies paresthesias. Denies previous surgeries of the right hand or wrist. No other acute complaints at this time. - Related Data Home Medications Medication Instructions Recorded Confirmed FLUoxetine HCL [PROzac] 40 mg PO HS 03/05/22 04/24/23 atenoloL [Tenormin] 25 mg PO BID 03/05/22 04/24/23 Ergocalciferol (Vitamin D2) 1,250 mcg PO TH 02/18/23 04/24/23 [Drisdol (50,000 Iu)] Furosemide [Lasix] 20 mg PO DAILY PRN 02/18/23 04/24/23 Dicyclomine HCl 20 mg PO QID PRN 04/20/23 04/24/23 Allergies Allergy/AdvReac Type Severity Reaction Status Date / Time No Known Allergies Allergy Verified 04/24/23 11:49 Review of Systems ROS Statement: Those systems with pertinent positive or pertinent negative responses have been documented in the HPI. ROS Other: All systems not noted in ROS Statement are negative. Past Medical History Past Medical History: Heart Failure, Hyperlipidemia, Hypertension Additional Past Medical History / Comment(s): skin cancer on face, Obese, cardiomyopathy History of Any Multi-Drug Resistant Organisms: None Reported Past Surgical History: Adenoidectomy, Section, Cholecystectomy, Hysterectomy, Orthopedic Surgery, Tonsillectomy Additional Past Surgical History / Comment(s): RT KNEE ARTHROSCOPY X3, Moh's procedure Past Anesthesia/Blood Transfusion Reactions: No Reported Reaction Past Psychological History: Anxiety Smoking Status: Never smoker - Past Family History Mother Family Medical History: Cancer Additional Family Medical History / Comment(s): COLON General Exam General appearance: alert, in no apparent distress Neck exam: Present: normal inspection. Absent: tenderness, meningismus, lymphadenopathy Respiratory exam: Present: normal lung sounds bilaterally. Absent: respiratory distress, wheezes, rales, rhonchi, stridor Cardiovascular Exam: Present: regular rate, normal rhythm, normal heart sounds. Absent: systolic murmur, diastolic murmur, rubs, gallop, clicks GI/Abdominal exam: Present: soft, normal bowel sounds. Absent: distended, tenderness, guarding, rebound, rigid Right Hand Wrist exam: Present: normal inspection, full ROM, tenderness (first digit), swelling (lateral wrist). Absent: laceration, ecchymosis, deformity, crepitus Neuro motor exam: Present: wrist extension intact, thumb opposition intact, thumb adduction intact Vascular: Present: normal capillary refill, radial pulse (2+). Absent: vascular compromise Back exam: Present: normal inspection Skin exam: Present: warm, dry, intact, normal color. Absent: rash Course Vital Signs 07/01/24 13:17 Temperature 98.7 F Pulse Rate 68 Respiratory 16 Rate Blood Pressure 100/48 O2 Sat by Pulse 98 Oximetry Medical Decision Making - Medical Decision Making Was pt. sent in by a medical professional or institution (Dr. PA, ENVIRONMENTAL SERVICES ASSOCIATE, urgent care, hospital, or assisted...) When possible be specific @ -No Did you speak to anyone other than the patient for history (EMS, parent, family, police, friend...)? What history was obtained from this source @ -No Did you review nursing and triage notes (agree or disagree)? Why? @ -I reviewed and agree with nursing and triage notes Were old charts reviewed (outside hosp., previous admission, EMS record, old EKG, old radiological studies, urgent care reports/EKG's, assisted records)? Report findings @ -No old charts were reviewed Differential Diagnosis (chest pain, altered mental status, abdominal pain women, abdominal pain men, vaginal bleeding, weakness, fever, dyspnea, syncope, headac he, dizziness, GI bleed, back pain, seizure, CVA, palpatations, mental health, musculoskeletal)? @ -Differential Musculoskeletal Muscular strain, contusion, ligament sprain, fracture, arthritis, septic arthritis, bursitis, cellulitis, muscle spasm, nerve compression, DVT, arterial occlusion, herpes zoster, electrolyte abnormality, tumor.... This is not meant to be in all inclusive list EKG interpreted by me (3pts min.). @ -None X-rays interpreted by me (1pt min.). @ -X-ray of the right hand reveals minimal early degenerative spurring at the base of the thumb with no acute osseous abnormality. CT interpreted by me (1pt min.). @ -None done U/S interpreted by me (1pt. min.). @ -None done What testing was considered but not performed or refused? (CT, X-rays, U/S, labs)? Why? @ -None What meds were considered but not given or refused? Why? @ -None Did you discuss the management of the patient with other professionals (professionals i.e. , PA, ENVIRONMENTAL SERVICES ASSOCIATE, lab, RT, psych nurse, social work faculty member, retail loss prevention officer, teacher, sba business development officer, briefcase sewer)? Give summary @ -No Was smoking cessation discussed for >3mins.? @ -No Was critical care preformed (if so, how long)? @ -No Were there social determinants of health that impacted care today? How? (Homelessness, low income, unemployed, alcoholism, drug addiction, transportation, low edu. Level, literacy, decrease access to med. care, penitentiary, rehab)? @ -No Was there de-escalation of care discussed even if they declined (Discuss DNR or withdrawal of care, Hospice)? DNR status @ -No What co-morbidities impacted this encounter? (DM, HTN, Smoking, COPD, CAD, Cancer, CVA, ARF, Chemo, Hep., AIDS, mental health diagnosis, sleep apnea, morbid obesity)? @ -None Was patient admitted / discharged? Hospital course, mention meds given and ro [place], prescriptions, significant lab abnormalities, going to OR and other pertinent info. @Discharge. 54-year-old female with right thumb pain. On examination patient noted to have full range of motion of the right thumb with no neurovascular deficits. There is no obvious deformity. X-ray negative for acute process. Patient is provided with a Norberto wrap and instructed to rest, ice, elevate and use Tylenol Motrin at home for symptomatic relief. All questions answered at bedside and strict return parameters discussed with the patient she is verbalized understanding. Discussed with Dr. Jensen Undiagnosed new problem with uncertain prognosis? @ -No Drug Therapy requiring intensive monitoring for toxicity (Heparin, Nitro, Insulin, Cardizem)? @ -No Were any procedures done? @ -No Diagnosis/symptom? @ -thumb sprain Acute, or Chronic, or Acute on Chronic? @ -Acute Uncomplicated (without systemic symptoms) or Complicated (systemic symptoms)? @ -uncomplicated Side effects of treatment? @ -No Exacerbation, Progression, or Severe Exacerbation? @ -No Poses a threat to life or bodily function? How? (Chest pain, [place], [place], pneumonia, PE, COPD, DKA, ARF, appy, cholecystitis, CVA, Diverticulitis, Homicidal, Suicidal, threat to staff... and all critical care pts) @ -No Disposition Clinical Impression: Thumb sprain Disposition: HOME SELF-CARE Condition: Good Instructions (If sedation given, give patient instructions): Finger Sprain (ED) Additional Instructions: Return to the emergency department for any new or worsening symptoms. Recommend that you continue rest, ice, elevation, tylenol and motrin as needed. Is patient prescribed a controlled substance at d/c from ED?: No Referrals: Mansoor Dunn MD [Primary Care Provider] - 1-2 days Time of Disposition: 13:44
--- NOTE | 2024-07-01 13:38 | XR ---
EXAMINATION TYPE: XR hand complete RT DATE OF EXAM: 07/01/2024 COMPARISON: NONE HISTORY: 54-year-old female hyperextension injury to the right thumb, pain TECHNIQUE: 3 views FINDINGS: There is minimal early degenerative spurring at the first CMC joint. No acute fracture, sub luxation, or dislocation is seen. IMPRESSION: Minimal early degenerative spurring at the base of the thumb. No acute osseous abnormality seen.
[2024-07-01 14:08] VITALS: BP 125/78; PULSE 66; RESP 18; TEMP 98.1
== END 2024-07-01 14:07 | disposition home or self-care (01) ==
LOC: EC 13:02
DX: S69.91XA Unspecified injury of right wrist, hand and finger(s), initial encounter
CPT/HCPCS: 99283

== ENCOUNTER → 2024-07-13 | Outpatient (CLI) | payer BC ==
[2024-07-14 03:04] LABS: Blood Urea Nitrogen 19.2 mg/dL (9.0-27.0); Calcium 9.5 mg/dL (8.7-10.3); Carbon Dioxide 24.9 mmol/L (21.6-31.8); Chloride 102 mmol/L (96-109); Glucose 95 mg/dL (70-110); Sodium 139 mmol/L (135-145)
== END | disposition home or self-care (01) ==
LOC: LABWHC1 14:47
PROVIDERS: ATTEND Internal Medicine Interventional Cardiology
DX: I10 Essential (primary) hypertension (principal)
CPT/HCPCS: 36415; 80048

== ENCOUNTER → 2024-08-29 | Outpatient (CLI) | payer BC ==
[2024-08-29 16:26] LABS: INR 0.9 (<1.2); Partial Thromboplastin Time 24.1 sec (22.0-30.0); Prothrombin Time 10.4 sec (10.0-12.5)
[2024-08-29 18:15] LABS: HCT 37.9 % (37.2-46.3); HGB 12.1 g/dL (12.0-15.0); MCH 29.1 pg (27.0-32.0); MCHC 31.9 g/dL (32.0-37.0); MCV 91.1 FL (80.0-97.0); Mean Platelet Volume 11.3 FL (9.5-12.2); NRBC Per 100 WBC 0 X 10*3/uL (0.00-0.01); Platelet Count 230 X 10*3/uL (140-440); RBC 4.16 X 10*6/uL (4.10-5.20); WBC 8.87 X 10*3/uL (4.50-10.00)
[2024-08-29 18:22] LABS: ALT 36 U/L (8-44); AST 25 U/L (13-35); Albumin 4.5 g/dL (3.8-4.9); Albumin/Globulin Ratio 1.73 Ratio (1.60-3.17); Alkaline Phosphatase 73 U/L (41-126); Blood Urea Nitrogen 20.1 mg/dL (9.0-27.0); Carbon Dioxide 25.8 mmol/L (21.6-31.8); Chloride 105 mmol/L (96-109); Globulin 2.6 g/dL (1.6-3.3); Glucose 106 mg/dL (70-110); Potassium 4.6 mmol/L (3.5-5.5); Sodium 143 mmol/L (135-145); Total Bilirubin 0.4 mg/dL (0.3-1.2); Total Protein 7.1 g/dL (6.2-8.2)
== END | disposition home or self-care (01) ==
LOC: LABPAT 14:55
PROVIDERS: ATTEND Orthopaedic Surgery
DX: Z01.818 Encounter for other preprocedural examination (principal); Z22.322 Carrier or suspected carrier of Methicillin resistant Staphylococcus aureus; M17.11 Unilateral primary osteoarthritis, right knee
CPT/HCPCS: 36415; 80053; 85027; 85610; 85730; 87070

== ENCOUNTER 2024-09-20 07:16 | Day surgery (SDC) | payer BC ==
[~2024-09-20 07:16] MED LIST changes: -DEXAMETHASONE SOD PHOSPHATE 4 MG/ML 1 ML VIAL IV ONE; -HYDROmorphone 0.5 MG/0.5 ML SYRINGE IVP PRN; -LACTATED RINGERS 1,000 ML IV SCH; -MIDAZOLAM 2 MG/2 ML VIAL IV PRN; -ONDANSETRON 4 MG/2 ML VIAL IVP ONE; -SCOPOLAMINE 1 MG/72 HR PATCH TRANSDERM ONE; +TRANEXAMIC 1,000 MG/100ML-NACL 1,000 MG in SALINE 1 100ML.BAG IVPB PRN; -ceFAZolin 3 GM in SODIUM CHLORIDE 0.9% 100 ML IVPB PRN
[2024-09-20] MEDS ORDERED: TRANEXAMIC 1,000 MG/100ML-NACL PREMIX BAG ONE (08:08)
[2024-09-20] MEDS ORDERED: PROPOFOL 10 MG/ML 20 ML VIAL IV ONE (08:08)
[2024-09-20] MEDS ORDERED: MIDAZOLAM 2 MG/2 ML VIAL ONE (08:08)
[2024-09-20] MEDS ORDERED: DEXAMETHASONE SOD PHOSPHATE 4 MG/ML 1 ML VIAL ONE (08:08)
[2024-09-20] MEDS ORDERED: ROPIVACAINE 5 MG/ML 30 ML VIAL ONE (08:08)
[2024-09-20] MEDS: GABAPENTIN 300 MG CAP PO PRN (08:09)
[2024-09-20] MEDS: MELOXICAM 7.5 MG TAB PO PRN (08:09)
[2024-09-20] MEDS: ACETAMINOPHEN TAB 500 MG TAB PO PRN (08:09)
[2024-09-20] MEDS: ONDANSETRON 4 MG/2 ML VIAL IVP ONE (08:11)
[2024-09-20] MEDS: DEXAMETHASONE SOD PHOSPHATE 4 MG/ML 1 ML VIAL IV ONE (08:11)
[2024-09-20] MEDS: LACTATED RINGERS 1,000 ML IV SCH (08:26)
[2024-09-20] MEDS ORDERED: NA PHOS,M-B/NA PHOS,DI-BA 133 ML ENEMA RECTAL PRN (08:57)
[2024-09-20] MEDS ORDERED: bisacodyL 10 MG SUPP RECTAL PRN (08:57)
[2024-09-20] MEDS ORDERED: ONDANSETRON 4 MG/2 ML VIAL IVP PRN (08:57)
[2024-09-20] MEDS ORDERED: MAGNESIUM HYDROXIDE 2,400 MG/30 ML CUP PO PRN (08:57)
[2024-09-20] MEDS ORDERED: HYDROmorphone 0.5 MG/0.5 ML SYRINGE IVP PRN (08:57)
[2024-09-20] MEDS ORDERED: HYDROmorphone 1 MG/ML 1 ML SYRINGE IVP PRN (08:57)
[2024-09-20] MEDS ORDERED: NALOXONE 0.4 MG/ML 1 ML VIAL IV PRN (08:57)
[2024-09-20] MEDS ORDERED: HYDROcodone/APAP 7.5-325MG 1 EACH TAB PO PRN (08:58)
[2024-09-20] MEDS: ceFAZolin 3 GM in SODIUM CHLORIDE 0.9% 100 ML IVPB PRN (09:12)
[2024-09-20] MEDS: ceFAZolin 1,000 MG in SODIUM CHLORIDE 0.9% 1,000 ML IRRIGATION ONE (09:12)
--- NOTE | 2024-09-20 10:34 | P.OP ---
Date of Procedure: 09/20/24 Preoperative Diagnosis: Severe osteoarthritis right knee Postoperative Diagnosis: Severe osteoarthritis right knee Procedure(s) Performed: Right total knee arthroplasty Implants: [employer]hew Journey II CR Oxinium cruciate retaining femoral component size 4, right [employer] Journey nonporous tibial baseplate size 3, right [employer] Journey II, XLPE Deep Dished articular insert, size 10 mm, Size 3-4, right [employer] Journey Meron II resurfacing patellar component, oval, 29 mm All components were cemented using Palacos R bone cement The articulation is Oxinium on polyethylene Anesthesia: spinal Surgeon: Navdeep Nicole Bi Specialist #1: Cat Wylie Estimated Blood Loss (ml): 40 Pathology: none sent Condition: stable Disposition: PACU Indications for Procedure: The patient's knee is end-stage, and conservative management has failed. The operation of knee replacement has been discussed at length in the office, as well as potential risks and complications. These are inclusive of, but not limited to: Infection, bleeding, scarring, discomfort, stiffness, blood vessel and nerve damage, need for further surgery, failure to relieve symptoms, persistence, recurrence, or worsening of problems, loosening, dislocation, wear, blood clot, pulmonary embolism, , gait dysfunction, stiffness, and other risks as discussed in the office. Patient elects to proceed and the consent form has been signed. Operative Findings: The operative findings are consistent with severe osteoarthritis of the right knee Description of Procedure: The patient was seen in the preoperative area, the consent was reviewed and the operative site was marked with a skin marker. The patient verified the procedure and the operative site. An adductor canal pain catheter and an iPACK block were placed by anesthesia in the preoperative area. The patient was then brought to the operating room and positioned on the operating room table in the supine position. Preoperative antibiotics and a gram of tranexamic acid were given intravenously. A spinal anesthetic was administered by the anesthesia department. Care was taken to make sure that all pressure points were adequately padded. A tourniquet was placed on the upper thigh and the lower extremity was prepped with ChloraPrep and draped in usual sterile fashion. A universal time-out was then performed which confirmed the patient's name, surgical site, ALLERGIES, and consent. The lower extremity was then exsanguinated and tourniquet was inflated to 250 mmHg. A standard anterior midline approach to the knee was performed. The skin and subcutaneous tissue were sharply dissected down to the patellar tendon. A medial parapatellar arthrotomy was then performed. The knee was then extended, the patellar was everted, and the knee was flexed. The infra-patellar fat pad was removed in order to enhance exposure. The anterior horns of both menisci were excised, and a release was performed to the posterior medial aspect of the knee. On gross visual inspection, there was complete loss of articular cartilage in the medial and patellofemoral joint spaces. There was also significant cartilage damage in the lateral compartment. There were multiple periarticular osteophytes globally about the knee which were then removed with a Ronguer. The femoral canal was then opened with the 9.5 mm intramedullary drill. The 8 mm intramedullary mayte was then inserted into the femoral canal with the distal femoral cutting guide set for 5 of valgus. The distal femoral cutting block was then pinned in place. The intramedullary mayte was then removed, and the distal femur was then cut. The cutting block was then removed and the cut was checked for symmetry. The resected bone was then measured to confirm the appropriate distal femoral resection. Next, the sizing guide was then placed and set for 3 external rotation based off of the epicondylar axis and Jeff Davis's line. Pins were then placed and the drill holes, and the femur was sized with the sizing stylus. The pins were then removed, and the sizing guide was then removed. The spikes of the appropriate size femoral block was then placed into the predrilled holes, and malleted into place. Two 45 mm pins were then placed into the fixation holes on the cutting block. An shantanu wing was then used to ensure there would be no notching with the anterior cut. The anterior condyles were cut without notching. The anterior chord cut was then performed, followed by the posterior cut, posterior chamfer cut, and the anterior chamfer cut. The collateral ligaments were protected during the entire process. The cutting block was then removed. Any remaining bone and osteophytes were removed from the femur with a Ronguer. Attention was then directed to the tibia. The remaining ACL was removed with a Ronguer, and the tibia was then gently subluxed forward with a large bent knee retractor. Any remaining menisci were excised. The posterior lateral corner was cauterized in order to coagulate the lateral geniculate artery. The extra medullary tibial cutting guide was then placed, set for the appropriate rotation, slope, and depth of resection. The proximal tibia cutting guide was then pinned in place. Proximal tibia was then cut and sized. A curved osteotome was then used to remove any posterior osteophytes from the distal femur. The femoral trial was placed. A narrow saw blade was then used to remove the anterior intracondylar femoral bone. The CR notch trial was then placed. The tibial trial was placed with the appropriate-sized insert. The knee was able to fully extend and flex to 130 and was stable throughout all range of motion. The knee was then extended and the patella was everted. Patella was then measured, and then using an osteotomy guide, the patella was cut at the appropriate level. The patellar component was sized. The patellar drill guide was placed and the patella was drilled. The patella trial was then placed. The knee was then taken through range of motion with the patella trial and the patella tracked normally using the no thumbs technique. The patella trial was then removed. The knee was then flexed and lug holes were drilled through the femoral trial and the femoral trial was then removed. The tibial was then re- exposed, and the tibial broach guide was then pinned in place after it was set for the appropriate rotation to allow for the most coverage without overhang. The tibia was then reamed and broached. The femoral canal was plugged with autologous bone. The cut surfaces of bone were then irrigated with pulsatile lavage. The knee was also irrigated with Irrisept solution. The components were then opened, the cement was mixed. Cement was placed on the backside of the femoral, tibial, and patellar components. Cement was then applied to the tibial surface and pressurized into the surface using finger pressurization technique. The tibial component was then applied and excess cement was removed after it was impacted securely noted to be flush with the cut surface. In similar fashion, the cement was applied to the cut femoral surface, pressurized and using finger pressurization the component was impacted in place. Excess cement was removed. The polyethylene spacer was then implanted and locked into position. Patellar component was then applied in a similar technique and the patellar clamp was used to hold patella in place while the cement hardened. The knee was held in full extension while the cement hardened. Once the cement had fully hardened, the knee was reinspected. Any other cement extrusion was removed the final range of motion testing showed range of motion from 0-130 with excellent stability, both medial and laterally and appropriate alignment of the leg. Patella tracked normally. After the cemented hardened, the tourniquet was released and hemostasis was obtained. A second gram of transexamic acid was given intravenously. The knee was again irrigated. The knee was again taken through range of motion and found to be stable throughout all range of motion of 0-130, and the patella tracked normally. The fascia was then closed with 0 Vicryl followed by #2 strata fix suture. The subcutaneous tissue was closed with 3-0 Vicryl and 3-0 monocryl. Exofin glue was used for the skin and placed with the knee in flexion. After the glue had dried, and Optafoam silver impregnated dressing was applied. A lightly compressive dressing was applied using web roll and Norberto wrap. Patient was then transferred to the stretcher and taken to recovery room in stable condition. Sponge and needle counts were correct. The accounts payable assistant DANIEL Sierra was required due the complexity surgery and the need for a skilled surgical scrub tech. She assisted in positioning, draping, retraction, and closure of the wound.
[2024-09-20] MEDS: ROPIVACAINE 1,100 MG, SODIUM CHLORIDE 0.9% 500 ML 330 ML, EMPTY PAIN BALL 1 EACH MISCELLANE PRN (11:24)
--- NOTE | 2024-09-20 11:45 | XR ---
EXAMINATION TYPE: XR knee limited RT DATE OF EXAM: 09/20/2024 11:25 AM COMPARISON: None. CLINICAL INDICATION: Female, 54 years old with history of Evaluation for Postop abnormality and align ment; PHH, pain TECHNIQUE: XR knee limited RT 2 views submitted. FINDINGS: Status post total knee arthroplasty changes with hardware in appropriate alignment and in tact. No evidence of fracture. Subcutaneous lucencies and lucencies within the joint consistent with surgical changes. IMPRESSION: Status post total knee arthroplasty changes with hardware intact and appropriate alignment. No fractu res identified. [facility], , 09/20/2024 11:43 AM
[2024-09-20] MEDS: IV FLUID CONTINUATION 1,000 ML IV ONE (12:15)
[2024-09-20] MEDS: HYDROmorphone 0.5 MG/0.5 ML SYRINGE IVP PRN ×2 (13:04→17:42)
--- NOTE | 2024-09-20 14:53 | P.ANPRN ---
Procedure Note - Anesthesia - Nerve Block Performed Right Adductor Canal Infusion Time Out Performed: Yes Date of Procedure: 09/20/24 Procedure Start Time: 08:43 Procedure Stop Time: 08:53 Location of Patient: PreOp Indication: Acute Post-Operative Pain, Requested by Surgeon Sedation Type: Sedate with meaningful contact maintained Preparation: Sterile Prep, Sterile Dressing Position: Supine Catheter: Indwelling Needle Types: Pajunk Needle Gauge: 21 Ultrasound used to visualize needle placement: Yes Ultrasound used to observe medication spread: Yes Blood Aspirated: No Pain Paresthesia on Injection Noted: No Resistance on Injection: Normal Image Stored and Saved: Yes Events: Uneventful and Well Tolerated (Ropivacaine 0.5% 3 cc plus dexamethasone 4 mg)
--- NOTE | 2024-09-20 14:55 | P.ANPRN ---
Procedure Note - Anesthesia - Nerve Block Performed Right Vaheck Single Time Out Performed: Yes Date of Procedure: 09/20/24 Procedure Start Time: 08:54 Procedure Stop Time: 08:56 Location of Patient: PreOp Indication: Acute Post-Operative Pain, Requested by Surgeon Sedation Type: Sedate with meaningful contact maintained Preparation: Sterile Prep Position: Supine Needle Types: Pajunk Needle Gauge: 21 Ultrasound used to visualize needle placement: Yes Ultrasound used to observe medication spread: Yes Blood Aspirated: No Pain Paresthesia on Injection Noted: No Resistance on Injection: Normal Image Stored and Saved: Yes Events: Uneventful and Well Tolerated (Ropivacaine 0.5% 20 cc plus dexamethasone 4 mg)
[2024-09-20] MEDS: HYDROcodone/APAP 7.5-325MG 1 EACH TAB PO PRN (16:06)
[2024-09-20] MEDS: SODIUM CHLORIDE 0.9% 1,000 ML IV SCH (16:53)
[2024-09-20] MEDS: ASPIRIN 325 MG TAB PO SCH (21:08)
[2024-09-20] MEDS: SENNOSIDES-DOCUSATE SODIUM 1 EACH TAB PO SCH (21:08)
--- NOTE | 2024-09-20 22:29 | P.CONS ---
History of Present Illness - Reason for Consult Consult date: 09/20/24 Medical management Requesting physician: Navdeep Nicole - Chief Complaint Right knee pain - History of Present Illness Patient is a 54-year-old female with past medical history of hypertension,hyperlipidemia, knee arthroscopy x 3, cholecystectomy is seen today as medical consultation for medical management post surgery. She suffered from chronic R knee pain which reportedly started when she was 20 years old. She was playing softball when she injured her right knee. Since then she had had arthroscopy of the knee three times. The pain then started travelling down the front of her leg. She has also had steroid shots that she mentions provided good relief of her symptoms. She once took a long bus ride that aggravated her pain along with swelling of her right leg. The pain was worse with movements. She was diagnosed with severe end stage osteoarthritis of the right knee and was counseled about undergoing surgery. She was then was scheduled for right total knee arthroplasty for today. Postoperatively, at the time of interview she reports ongoing pain on the knee but pain medications help with the pain. She denies any numbness or tingling sensation of the right foot. She denies having a bowel movement after the surgery, but has passed flatus. Additionally, she mentions having to take furosemide on an as needed basis when she eats salty foods as she tends to retain fluid. Denies fever, chills, chest pain, shortness of breath, cough, chest pain, palpitations, abdominal pain, nausea, vomiting, hematuria, dysuria, hematochezia, melena, headache, slurred speech, numbness, tingling. Vitals on admission T 96.9 F, KS 68, RR 16, BP 126/61, O2 sat 96% on room air Review of systems: Pertinent positives and negatives as discussed in HPI, a complete review of systems was performed and all other systems are negative. PMH: Hypertension, cardiomegaly, skin cancer, hyperlipidemia PSH: Knee arthroscopy x 3, hysterectomy, section, cholecystectomy, a denoidectomy, Mohs procedure FMH: Colon cancer Social history: Tobacco: Never smoker Alcohol: Denies use Recreational drugs: Denies use Travel: No recent travel history Sick contacts: None Physical examination: Vital signs reviewed General: nontoxic, no distress, appears at stated age, obese Derm: warm, dry, intact Head: atraumatic, normocephalic, symmetric Eyes: EOMI, anicteric sclera Mouth: no lip lesion, mucus membranes moist Cardiovascular: S1 S2 reg, no murmur Lungs: CTA bilateral, no rhonchi, no rales, no accessory muscle use Abdominal: soft, non-tender to palpation Extremities: No edema, Right knee bandaged, green line seen at right ankle, skin of right foot less pigmented but same as that of L foot, ROM intact at the R ankle, strength 5/5 in all extremities grossly except for R knee joint due to postoperative pain Neuro: Alert, Oriented, Gross neurological examination did not reveal any focal deficits. Psych: well appearing, appropriate affect Assessment/Plan: Patient is a 54-year-old female with past medical history of hypertension and cardiomegaly, knee arthroscopy x 3, bilateral feet, cholecystectomy presents with right knee pain and is status post right total knee arthroplasty, POD 0. Medicine has been consulted for medical management. #. H/o Hypertension -Continue home meds atenolol 25 mg PO BID and lisinopril 5 mg PO HS #. H/o Anxiety -Continue home med fluoxetine 40 mg p.o. daily #. Severe osteoarthritis of the right knee #. S/p right total knee arthroplasty, POD 0 -Knee x-ray after the surgery shows status post total knee arthroplasty changes with hardware intact and appropriate alignment, no fractures identified -Currently on Dilaudid 0.5 mg IVP Q5M as needed, Dilaudid 0.5 mg IVP every 3 hours as needed O2 (PS 4-6), Dilaudid 1 mg IVP every 3 hours as needed about (PS 7-10), Dilaudid 0.25 mg IVP every 3 hours as needed (PS 1-3), [place] 7.53 25 p.o. every 6 hours as needed (PS 1-5), [place] 7.53 25 2 each p.o. every 6 hours as needed (PS 6-10) and ropivacaine (breakthrough pain) for pain management per primary surgical team -Currently on aspirin 325 mg p.o. twice daily for DVT prophylaxis per primary surgical team -Currently on cefazolin 2 g IVPB every 8 hours and tranexamic acid #. Nausea and vomiting -Continue ondansetron 4 mg IV every 8 hours as needed #. Constipation -Continue bisacodyl 10 mg rectal daily as needed, Fleet-enema rectal daily as needed, Senokot p.o. at bedtime DVT prophylaxis: Per primary surgical team GI prophylaxis: Pantoprazole 40 mg p.o. daily Past Medical History Past Medical History: Cancer, Hyperlipidemia, Hypertension Additional Past Medical History / Comment(s): skin cancer on face, enlarged heart, mild IRVIN, occasional peripheral edema, occasional chest discomfort after eating History of Any Multi-Drug Resistant Organisms: None Reported Past Surgical History: Adenoidectomy, Section, Cholecystectomy, Hysterectomy, Orthopedic Surgery, Tonsillectomy Additional Past Surgical History / Comment(s): RT KNEE ARTHROSCOPY X3, Moh's procedure, Rt. foot hardware, colonoscopy Past Anesthesia/Blood Transfusion Reactions: No Reported Reaction Past Psychological History: Anxiety Smoking Status: Never smoker Past Alcohol Use History: None Reported Past Drug Use History: None Reported - Past Family History Mother Family Medical History: Cancer Additional Family Medical History / Comment(s): COLON Father Family Medical History: Coronary Artery Disease (CAD) Additional Family Medical History / Comment(s): CABG x 4 vessels Sister(s) Family Medical History: Myocardial Infarction (MT) Brother(s) Family Medical History: AICD/Pacemaker Medications and Allergies Home Medications Medication Instructions Recorded Confirmed Type FLUoxetine HCL [PROzac] 40 mg PO DAILY 03/05/22 09/16/24 History atenoloL [Tenormin] 25 mg PO BID 03/05/22 09/16/24 History Furosemide [Lasix] 20 mg PO DAILY PRN 02/18/23 09/16/24 History Cholecalciferol [Vitamin D3 (25 1 tab PO DAILY 09/16/24 09/16/24 History Mcg = 1000 Iu)] Cholestyramine (with Sugar) 1 dose PO DAILY 09/16/24 09/16/24 History [Cholestyramine Powder] Ibuprofen [Advil] 600 mg PO Q8HR PRN 09/16/24 09/16/24 History lisinopriL [Zestril] 5 mg PO HS 09/16/24 09/16/24 History Aspirin 325 mg PO BID #60 tab 09/20/24 Rx HYDROcodone/APAP 7.5-325MG [[place] 1 - 2 tab PO Q6H PRN #32 tab 09/20/24 Rx 7.5-325] Sennosides [Senokot] 2 tab PO DAILY PRN #60 tablet 09/20/24 Rx Allergies Allergy/AdvReac Type Severity Reaction Status Date / Time No Known Allergies Allergy Verified 09/20/24 07:38 Physical Exam Vitals: Vital Signs Temp Pulse Resp BP Pulse Ox 09/20/24 16:54 98.0 F 68 17 102/57 97 09/20/24 15:48 75 20 133/75 95 09/20/24 14:48 66 20 140/78 95 09/20/24 13:48 61 20 140/75 96 09/20/24 13:18 55 L 20 122/63 99 09/20/24 12:46 53 L 20 119/58 99 09/20/24 12:16 52 L 18 130/59 9 L 09/20/24 12:02 54 L 18 105/53 99 09/20/24 11:48 53 L 18 106/62 98 09/20/24 11:33 53 L 18 100/59 100 09/20/24 11:18 54 L 18 96/52 100 09/20/24 11:03 97.0 F L 56 L 16 97/50 98 09/20/24 09:00 57 L 16 123/69 96 09/20/24 07:47 96.9 F L 68 16 126/61 96 Intake and Output 09/20/24 09/20/24 09/20/24 06:59 14:59 22:59 Intake Total 1501 Output Total 40 Balance 1461 Intake: IV 1501 Output: Estimated Blood Loss 40 Other: # Voids 1 Weight 144.2 kg 144.2 kg
[2024-09-20] MEDS: lisinopriL 5 MG TAB PO SCH (23:01)
[2024-09-20] MEDS: atenoloL 25 MG TAB PO SCH (23:01)
[2024-09-21 08:35] LABS: Basophils # (A) 0.01 X 10*3/uL (0.00-0.10); Basophils % (A) 0.1 %; Eosinophils # (A) 0 X 10*3/uL (0.04-0.35); Eosinophils % (A) 0 %; HGB 10.8 g/dL (12.0-15.0); Lymphocytes # (A) 0.99 X 10*3/uL (0.90-5.00); Lymphocytes % (A) 7.7 %; MCH 29.1 pg (27.0-32.0); MCHC 31.8 g/dL (32.0-37.0); MCV 91.6 FL (80.0-97.0); Mean Platelet Volume 12.1 FL (9.5-12.2); Monocytes # (A) 0.63 X 10*3/uL (0.20-1.00); Monocytes % (A) 4.9 %; NRBC Per 100 WBC 0 X 10*3/uL (0.00-0.01); Neutrophils # (A) 11.12 X 10*3/uL (1.80-7.70); Neutrophils % (A) 86.6 %; Platelet Count 218 X 10*3/uL (140-440); RBC 3.71 X 10*6/uL (4.10-5.20); WBC 12.84 X 10*3/uL (4.50-10.00)
[2024-09-21 08:39] VITALS: BP 94/57; PULSE 56; RESP 18; TEMP 98.1
[2024-09-21] MEDS: CHOLESTYRAMINE (WITH SUGAR) 4 GM PACKET PO SCH (09:11)
[2024-09-21] MEDS: CHOLECALCIFEROL 25 MCG (1000 IU) TABLET PO SCH (09:12)
[2024-09-21] MEDS: FLUoxetine HCL 20 MG CAP PO SCH (09:12)
[2024-09-21] MEDS: atenoloL 25 MG TAB PO SCH (09:12)
[2024-09-21 09:30] LABS: African American GFR (CKD) 80 (>60 ml/min/1.73 sqM); Anion Gap 8 mmol/L; Blood Urea Nitrogen 24 mg/dL (7-17); Carbon Dioxide 22 mmol/L (22-30); Chloride 107 mmol/L (98-107); Glucose 118 mg/dL (74-99); Sodium 137 mmol/L (137-145)
[2024-09-21 09:31] LABS: Calcium 8.7 mg/dL (8.4-10.2); Non-African American GFR(CKD) 69 (>60 ml/min/1.73 sqM)
[2024-09-21 09:34] LABS: Magnesium 1.8 mg/dL (1.6-2.3); Potassium 4.5 mmol/L (3.5-5.1)
--- NOTE | 2024-09-21 10:12 | P.PN ---
Subjective Progress Note Date: 09/21/24 Hospital course: Patient is a very pleasant 54-year-old female with a past medical history of hypertension, hyperlipidemia, cardiomegaly, and osteoarthritis. She is currently admitted under orthopedic surgery team status post right total knee arthroplasty secondary to severe osteoarthritis of right knee. Surgical procedure was completed by Dr. Nicole. We were consulted for medical management throughout hospitalization. Physical exam: Patient seen and fully evaluated at bedside this morning. She is postoperative day 1. She is reporting that she is doing well. She reports postoperative pain is currently controlled and denies having any numbness or tingling in her extre mities. She denies having any headache, lightheadedness, dizziness, chest pain, palpitations, shortness of breath, nausea, vomiting, or any other complaints at this time. Vital signs reviewed and stable. Blood pressure soft this morning, likely secondary to pain medications and patient asymptomatic. General: Nontoxic, no distress and appears stated age. Derm: Skin warm and dry, normal coloration for ethnicity. Head: Atraumatic, normocephalic and symmetric. Eyes: EOM's intact, no lid lag, and anicteric sclera Mouth: no lip lesions, mucus membranes moist Cardiovascular: regular rate and rhythm with normal S1S2, no murmur, positive posterior tibial pulses bilaterally, and cap refill < 2 seconds. Lungs: Respirations even, regular, and unlabored on room air. Lungs CTA bilaterally, no rhonchi, no rales, no wheezing, and no accessory muscle usage. Abdominal: soft, nontender to palpation, no guarding, no appreciable organomegaly Ext: ROM intact. No gross muscle atrophy, no edema, no contractures Neuro: Speech clear, face symmetrical and CN II-XII grossly intact with no noted focal neuro deficits Psych: Alert and oriented to person, place, time, and situation. Appropriate and pleasant affect. Assessment and Plan of Care: Status post right total knee arthroplasty -Management per primary admitting orthopedic surgery team including DVT prophylaxis, pain management, wound/dressing management, weightbearing, and PT/OT. -Patient currently on DVT prophylaxis with aspirin 325 mg twice daily. Hypertension -Monitor vital signs and continue daily medication regimen with lisinopril 5 mg nightly and atenolol 25 mg twice daily. Leukocytosis -Postoperative leukocytosis with WBC count of 12.84 believed to be reactive secondary to surgical procedure with no signs of infection,. No need for further intervention or repeat testing at this time. Acute postoperative blood loss anemia -Preoperative hemoglobin 12.1 and 08/29/2024 with postoperative hemoglobin of 10.8. This is an expected and stable finding. No need for intervention or blood transfusion at this time. No need for further testing. Data reviewed: Vital signs reviewed. Blood pressure 94/57, heart rate 56, respiratory rate 18, temp 98.1 F, and SpO2 of 96% on room air. Postoperative labs reviewed. CBC showing leukocytosis with WBC count of 12.84 and acute postoperative blood loss anemia with hemoglobin of 10.8. BMP showing mild prerenal azotemia with BUN of 24 otherwise normal findings. Blood glucose 118. Magnesium 1.8. Thank you for allowing us to participate in the care of this pleasant patient. Do not hesitate to contact us with questions. Someone can be reached from the [facility] hospitalist group all hours of the day at [phone] or via perfect serve. Patient was seen independently by Nurse Pracitioner. This document was prepared using [employer] dictation software. Please allow for errors in records management manager, while rare they do occur. Zafar Slaughter NP rendered care for this patient independently, reviewed the findings and plan as documented in the note above and agree with plan. I did not physically speak with or examine the patient on this date. Objective - Vital Signs Vital signs: Vital Signs Temp 97.8 F 09/21/24 01:39 Pulse 68 09/21/24 01:39 Resp 17 09/21/24 01:39 BP 135/63 09/21/24 01:39 Pulse Ox 96 09/21/24 01:39 FiO2 Intake & Output 09/20/24 09/21/24 09/21/24 18:59 06:59 18:59 Intake Total 1501 Output Total 40 Balance 1461 Weight 144.2 kg Intake: IV 1501 Output: Estimated Blood Loss 40 Other: # Voids 0 3 - Labs CBC & Chem 7: 09/21/24 02:40 09/21/24 02:40
--- NOTE | 2024-09-21 10:24 | P.DS ---
Providers Expected date of discharge: 09/21/24 Attending physician: Navdeep Nicole Consults: 09/20/24 16:13 Consult Physician Routine Consulting Provider: Wesley Ochoa Consult Reason/Comments: medical management Do you want consulting provider notified?: Yes Primary care physician: Mansoor Dunn MD - Discharge Diagnosis(es) (1) Osteoarthritis of right knee Current Visit: Yes Status: Acute (2) Status post total right knee replacement Current Visit: Yes Status: Acute Hospital Course: This is a 54-year-old female with known history of degenerative arthritis of the right knee. The patient presented for evaluation as an outpatient. After discussion and consideration patient elects to proceed with total knee arthroplasty. The patient is seen preoperatively by Dr. Nicole and medically cleared for surgery by their primary care physician. Patient is admitted to [facility] on 09/20/2024 for total knee arthroplasty. The procedure is performed without complication or sequelae. The patient is doing well postoperatively. Labs and vital signs are stable on day of discharge. On day of discharge patient's knee incision is healing well. There is minimal erythema. There is no drainage noted at this time. There is minimal soft tissue swelling to the knee. Patient has full foot and ankle motion without difficulty or pain. Calf is soft and nontender to palpation. Neurovascular status to the right lower extremity is intact. Patient is discharged home in good condition. Please see med rec for accurate list of home medications. Plan - Discharge Summary Discharge Rx Participant: Yes New Discharge Prescriptions: New Aspirin 325 mg PO BID #60 tab HYDROcodone/APAP 7.5-325MG [[place] 7.5-325] 1 - 2 tab PO Q6H PRN #32 tab PRN Reason: Pain Sennosides [Senokot] 2 tab PO DAILY PRN #60 tablet PRN Reason: Constipation No Action atenoloL [Tenormin] 25 mg PO BID FLUoxetine HCL [PROzac] 40 mg PO DAILY Furosemide [Lasix] 20 mg PO DAILY PRN PRN Reason: Edema Ibuprofen [Advil] 600 mg PO Q8HR PRN PRN Reason: Pain Cholestyramine (with Sugar) [Cholestyramine Powder] 1 dose PO DAILY lisinopriL [Zestril] 5 mg PO HS Cholecalciferol [Vitamin D3 (25 Mcg = 1000 Iu)] 1 tab PO DAILY Discharge Medication List FLUoxetine HCL [PROzac] 40 mg PO DAILY 03/05/22 [History] atenoloL [Tenormin] 25 mg PO BID 03/05/22 [History] Furosemide [Lasix] 20 mg PO DAILY PRN 02/18/23 [History] Cholecalciferol [Vitamin D3 (25 Mcg = 1000 Iu)] 1 tab PO DAILY 09/16/24 [Hist ory] Cholestyramine (with Sugar) [Cholestyramine Powder] 1 dose PO DAILY 09/16/24 [History] Ibuprofen [Advil] 600 mg PO Q8HR PRN 09/16/24 [History] lisinopriL [Zestril] 5 mg PO HS 09/16/24 [History] Aspirin 325 mg PO BID #60 tab 09/20/24 [Rx] HYDROcodone/APAP 7.5-325MG [[place] 7.5-325] 1 - 2 tab PO Q6H PRN #32 tab 09/20/24 [Rx] Sennosides [Senokot] 2 tab PO DAILY PRN #60 tablet 09/20/24 [Rx] Follow up Appointment(s)/Referral(s): [facility],Equipment [NON-STAFF] - As Needed (*Call [facility] once home to arrange delivery of the Continuous Passive Motion (CPM) machine. ) Navdeep Nicole DO [Doctor of Osteopathic Medicine] - 2 Weeks Activity/Diet/Wound Care/Special Instructions: Weightbearing as tolerated with a walker. CPM 5-6h daily as tolerated. Leave dressing intact. Dressing may be removed by home care nurse or by patient in 7 days. Then change dressing twice daily until follow up. May shower with initial dressing intact and after removal. If dressing become saturated, please remove. Recommend use of compression stockings daily until follow up to help prevent swelling and blood clots. May remove at night before sleeping. Please take aspirin 325mg twice daily for 30 days to prevent blood clots. Please follow up with [facility] and call with any questions or concerns, . Discharge Disposition: HOME WITH HOME HEALTH SERVICES
--- NOTE | 2024-09-21 13:17 | P.PN ---
Progress Note - Text 09/21/24 89am -year-old female status post total knee replacement. Patient has On-Q pump for postop pain control with a solution running at 8 cc an hour with a VAS of 4. Dressing clean dry and intact. Plan to continue On-Q pump infusion
[2024-09-21] MEDS ORDERED: lisinopriL 5 MG TAB PO SCH (21:00)
== END 2024-09-21 12:07 | disposition home health service (06) ==
LOC: OR 07:16 → 4SSUR 11:00 → OR 09-21 12:07
PROVIDERS: ATTEND Orthopaedic Surgery
DX: M17.11 Unilateral primary osteoarthritis, right knee (principal); G89.18 Other acute postprocedural pain; E78.5 Hyperlipidemia, unspecified; I10 Essential (primary) hypertension; F41.9 Anxiety disorder, unspecified; D72.829 Elevated white blood cell count, unspecified; Z85.828 Personal history of other malignant neoplasm of skin; Z90.49 Acquired absence of other specified parts of digestive tract; Z90.710 Acquired absence of both cervix and uterus; Z79.899 Other long term (current) drug therapy; Z79.1 Long term (current) use of non-steroidal anti-inflammatories (NSAID)
CPT/HCPCS: 73560; 27447; 64999; 64448; J1100; J0690 ×2; J2405; J2795; J1171; 80048; 83735; 85025

== ENCOUNTER → 2024-09-27 | Outpatient (CLI) | payer BC ==
--- NOTE | 2024-09-29 07:34 | US ---
EXAMINATION TYPE: US venous doppler duplex LE RT DATE OF EXAM: 09/27/2024 3:21 PM COMPARISON: NONE CLINICAL INDICATION: Female, 54 years old with history of I80.9 PHLEBITIS AND THROMBOPHLEBITIS OF UNS PECIFIE; post rt knee sx, Pain TECHNIQUE: The lower extremity deep venous system is examined utilizing real time linear array sonog codey with graded compression, color doppler sonography, and spectral doppler. SIDE PERFORMED: Right FINDINGS: VESSELS IMAGED: Common Femoral Vein Deep Femoral Vein Greater Saphenous Vein * Femoral Vein Popliteal Vein Small Saphenous Vein * Proximal Calf Veins (* superficial vessels) limited exam due to pt body habitus and severe edema Right Leg: Negative for DVT, Color Doppler imaging shows patency of the vessels. Spectral waveforms are within normal limits. Anechoic area in popliteal fossa seen measurin.3x1.7x4.7cm IMPRESSION: 1. Exam is limited. To the level visualized, no deep venous thrombosis within the right lower extremi ty is evident. 2. Right popliteal cyst. [facility], , 09/29/2024 7:32 AM
== END | disposition home or self-care (01) ==
LOC: RADUSWWP 14:17
PROVIDERS: ATTEND Orthopaedic Surgery Hand Surgery
DX: Z12.31 Encounter for screening mammogram for malignant neoplasm of breast (principal); I82.401 Acute embolism and thrombosis of unspecified deep veins of right lower extremity; N95.0 Postmenopausal bleeding; C54.1 Malignant neoplasm of endometrium; M71.21 Synovial cyst of popliteal space [Baker], right knee